=== PATIENT | male | born 1945 | race Caucasian/White ===

== ENCOUNTER → 2017-12-17 | Day surgery (SDC) | payer MEDICARE, OTHER, SELFPAY | END | disposition home or self-care (01) | PROVIDERS: PCP Internal Medicine; Visit Provider Surgery | DX: Z12.11 Encounter for screening for malignant neoplasm of colon (principal); K57.30 Diverticulosis of large intestine without perforation or abscess without bleeding; K64.0 First degree hemorrhoids; D12.0 Benign neoplasm of cecum; I48.91 Unspecified atrial fibrillation | CPT/HCPCS: 45380; 88305; 99152; 99153; J2250; J3010 ==

== ENCOUNTER → 2018-04-30 11:34 | Outpatient (CLI) | payer MEDICARE, OTHER, SELFPAY ==
[2018-04-30 12:34] LABS: Add Manual Diff / Slide Review NO; Basophils Percent Auto 0.9 % (0-2); Eosinophils Percent Auto 1.4 % (2-4); Hematocrit 36.2 % (41-53); Hemoglobin 12.2 g/dL (13.5-17.5); Lymphocytes Percent Auto 12.5 % (25-40); Mean Corpuscular HGB Conc 33.7 % (30-36); Mean Corpuscular Hemoglobin 32.6 PG (26-34); Mean Corpuscular Volume 96.6 fL (80-100); Monocytes Percent Auto 8.3 % (3-14); Neutrophils Absolute Auto 5400 /uL (3000-5900); Neutrophils Percent Auto 76.9 % (50-75); Platelet Count 293 X10^3/uL (150-400); Red Blood Cell Count 3.74 X10^6/uL (4.5-5.9); Red Cell Distribution Width 13.9 % (11.6-14.8); White Blood Cell Count 7.1 X10^3/uL (4.5-11.0)
[2018-04-30 13:02] LABS: Alanine Aminotransferase 95 IU/L (21-72); Albumin Globulin Ratio 1.3 (1.0-2.8); Alkaline Phosphatase 326 U/L (38-126); Aspartate Aminotransferase 88 IU/L (17-59); BUN Creatinine Ratio 18.9 (6-22); Bilirubin Total 0.7 mg/dL (0.2-1.3); Blood Urea Nitrogen 17 mg/dL (9-20); Calcium 9.6 mg/dL (8.4-10.2); Carbon Dioxide 26 mmol/L (22-32); Chloride 106 mmol/L (98-107); Cholesterol 211 mg/dL (140-199); Estimated Glomerular Filt Rate > 60.0 mL/min (>60); Globulin 3.2 g/dL (1.7-4.1); Glucose 90 mg/dL (80-110); HEMOLYSIS < 15 (0-50); Sodium 140 mmol/L (137-145); Total Protein 7.2 g/dL (6.3-8.2); Triglycerides 57 mg/dL (35-150)
[2018-04-30 13:11] LABS: HDL Cholesterol 143 mg/dL (40-60); LDL Cholesterol Calculated 57 mg/dL (<100)
[2018-04-30 13:31] LABS: Prostate Specific Antigen Scrn 3.01 ng/mL (0.1-4.0)
== END ==
PROVIDERS: PCP Internal Medicine; Visit Provider Internal Medicine
DX: C25.9 Malignant neoplasm of pancreas, unspecified (principal); E78.00 Pure hypercholesterolemia, unspecified; Z12.5 Encounter for screening for malignant neoplasm of prostate
CPT/HCPCS: 36415; 80053; 80061; 85025; G0103

== ENCOUNTER → 2018-05-13 13:15 | Outpatient (CLI) | payer MEDICARE, OTHER, SELFPAY ==
--- NOTE | 2018-05-13 | DI.RAD.S_ITS ---
This blank DEXA report has been sent in error by the PACS system. The correct and complete report will be forthcoming in 1-2 days. Thank you for your patience and understanding. Dictated by: Hilary Delcaruz MD, PhD on 05/13/2018 at 14:30 Approved by: Hilary Delacruz MD, PhD on 05/13/2018 at 14:30
== END ==
PROVIDERS: PCP Internal Medicine; Visit Provider Internal Medicine
DX: M85.851 Other specified disorders of bone density and structure, right thigh (principal); M06.9 Rheumatoid arthritis, unspecified; R29.890 Loss of height; K92.9 Disease of digestive system, unspecified
CPT/HCPCS: 77080

== ENCOUNTER 2018-12-09 07:41 | Emergency (ER) | payer MEDICARE, OTHER, SELFPAY ==
[2018-12-09] VITALS (15 sets, daily range): BP systolic 98–139; BP diastolic 74–84; PULSE 50–160; RESP 14–20; TEMP 36.4; O2SAT 98–100; BMI 20.2
--- NOTE | 2018-12-09 07:49 | DI.RAD.S_ITS ---
PROCEDURE: XR CHEST 1V INDICATIONS: afib TECHNIQUE: One view of the chest was acquired. COMPARISON: [facility], , CHEST 2 VIEW, 01/11/2012, 15:44. FINDINGS: Surgical changes and devices: None. Lungs and pleura: Lungs are clear. No pleural effusions or pneumothorax. Mediastinum: Mediastinal contours appear normal. Heart size is normal. Bones and chest wall: No suspicious bony lesions. Overlying soft tissues appear unremarkable. IMPRESSION: No acute cardiopulmonary disease process. Dictated by: Hilary Delacruz MD, PhD on 12/09/2018 at 8:22 Approved by: iHlary Delacruz MD, PhD on 12/09/2018 at 8:22
[2018-12-09] MEDS: SODIUM CHLORIDE 0.9% 1,000 ML 150 ML IV (08:01)
[2018-12-09 08:02] LABS: Add Manual Diff / Slide Review NO; Basophils Absolute Auto 100 /uL (0-100); Basophils Percent Auto 0.9 % (0-2); Eosinophils Absolute Auto 200 /uL (0-450); Eosinophils Percent Auto 2.4 % (2-4); Hematocrit 38.4 % (41-53); Hemoglobin 12.8 g/dL (13.5-17.5); Lymphocytes Absolute Auto 1000 /uL (1100-4500); Lymphocytes Percent Auto 12.2 % (25-40); Mean Corpuscular HGB Conc 33.3 % (30-36); Mean Corpuscular Hemoglobin 32.2 PG (26-34); Mean Corpuscular Volume 96.6 fL (80-100); Monocytes Absolute Auto 700 /uL (0-900); Monocytes Percent Auto 8.6 % (3-14); Neutrophils Absolute Auto 6500 /uL (1500-7000); Neutrophils Percent Auto 75.9 % (50-75); Platelet Count 296 X10^3/uL (150-400); Red Blood Cell Count 3.97 X10^6/uL (4.5-5.9); Red Cell Distribution Width 14.2 % (11.6-14.8); White Blood Cell Count 8.6 X10^3/uL (4.5-11.0)
--- NOTE | 2018-12-09 08:09 | ED.ARRPALP ---
HPI - Arrhythmia/Palpitations General Chief Complaint: Arrhythmia/Palpitations Stated Complaint: afib Time Seen by Provider: 12/09/18 07:54 Source: patient and family () Mode of arrival: ambulatory Limitations: no limitations History of Present Illness HPI narrative: 73-year-old male comes to the emergency department with complaint of irregular heartbeat/AFib. The patient states this morning about 5:00 a.m. he was up walking in the house when he felt a jolt and a retic heartbeat. He states he has had this episode 3 or 4 times the past over several years. Usually will last a couple hours maybe up to 5 and then resolved. Today he was feeling a little bit weak but able to ambulate without major issue. Mildly short of breath. Denies any chest pain or pressure, no nausea and/or vomiting. Has not had any recent upper respiratory infections, fevers. He states maybe when it 1st started he felt a little clammy but that is no longer present. He states that he has diarrhea chronically secondary to pancreatic cancer, Whipple procedure and Crohn's disease. He has not noticed any blood, he states sometimes his stool seemed a little dark but that is rarely. He denies any swelling in his lower extremities other than his left leg is always a little bit bigger than his right it has been this way for several years. He has noticed that he gets a little bit more fatigued when he goes out for a walk over the last 6 months. But states that he can hop on a bike and right 20 miles without any major issue. Does remember if he has ever had a stress test or cardiac catheterization. He has mention these episodes to his physician but never been worked up. Patient states he has known pancreatic cancer, Crohn's disease, he has had E coli infections related to biopsy found on his prostate. He takes medication for osteoporosis, Creon as well as finasteride. He does not take any thinners or aspirin. He has had a Whipple procedure, colon resection after large polyp was found on colonoscopy that was unable to be removed, bilateral knee surgery, hernia repair, appendectomy. Patient denies any allergies. Related Data Home Medications Medication Instructions Recorded Confirmed FOLIC ACID/VIT A/VIT B1/VIT 1 tab PO BID #0 06/04/12 (#MULTIVITAMIN) [ibuprofen ] 100 mg PO #0 06/04/12 alendronate [Fosamax] 70 mg PO QWEEK #0 03/06/17 12/09/18 calcium citrate 600 BID #0 03/06/17 loperamide [Imodium A-D] mg PO PRN PRN #0 03/26/17 ciprofloxacin HCl [Cipro] 500 mg PO BID #0 12/17/17 sildenafil [Viagra] 50 mg PO PRN PRN #0 12/17/17 finasteride 5 mg PO DAILY 12/09/18 12/09/18 [id number] [Creon] 12/09/18 pantoprazole 40 mg PO DAILY 12/09/18 12/09/18 Previous Rx's Medication Instructions Recorded hydrocodone-acetaminophen [[place]] 1 - 2 tab PO Q6HP PRN #10 tab 03/06/17 tamsulosin [Flomax] 0.4 mg PO QDAY 7 Days #0 cap 03/06/17 apixaban [Eliquis] 5 mg PO BID 30 Days #60 tab 12/09/18 metoprolol tartrate 12.5 mg PO BID #30 tab 12/09/18 Allergies Allergy/AdvReac Type Severity Reaction Status Date / Time No Known Drug Allergies Allergy Verified 12/09/18 07:47 Review of Systems Review of Systems ROS Unobtainable: All systems reviewed & are unremarkable except as noted in HPI and below Constitutional Denies body ache(s), Denies chills, Denies fever(s), Denies lethargy and Reports weakness ENT Ears, Nose, Mouth, and Throat: Denies nasal congestion Cardiovascular Denies chest pain, Denies chest pain at rest, Denies chest pain with activity, Denies syncope, Reports rapid heart rate, Denies edema, Reports irregular heart rhythm, Denies leg edema, Denies lightheadedness, Denies radiating jaw, neck or arm pain, Denies palpitations, Reports dyspnea (Mild per patient), Denies dyspnea on exertion and Denies orthopnea Respiratory Denies change in phlegm color, Denies chest congestion, Denies cough, Denies excessive phlegm production, Denies pain on inspiration, Reports dyspnea (Mild per patient), Denies dyspnea on exertion and Denies wheezing Gastrointestinal Gastrointestinal: Denies abdominal pain, Denies melena, Denies hematochezia, Denies change in bowel habits, Reports diarrhea (Chronically), Denies nausea and Denies vomiting Integumentary/Breasts Denies rash Neurologic Denies syncope and Reports weakness Endocrine Denies palpitations Allergic/Immunologic Denies wheezing [facility] Medical History (Updated 12/09/18 @ 08:16 by Shannon Swenson DO) BPH (benign prostatic hyperplasia) (Chronic) Crohn's disease (Chronic) Pancreatic cancer (Chronic) Exam Narrative Exam Narrative: GENERAL: Alert and oriented x three, thin, well-appearing male in no acute distress. HEENT: Head normocephalic, atraumatic, EOMI, pupils reactive, face symmetric, moist mucous membranes NECK: Supple, full range of motion CARDIOVASCULAR: Tachycardic and irregularly irregular, without murmurs, rubs or gallops. No JVD. No edema bilateral lower extremities. RESPIRATORY: Breath sounds equal bilaterally, no wheezes rales or rhonchi. No tachypnea, no accessory muscle use. ABDOMEN: Soft, nontender. Normoactive bowel sounds all 4 quadrants. No guarding or rebound, rigidity, no mass : No CVA tenderness EXTREMITIES: Normal range of motion, no clubbing or edema. 2+ pulses bilateral lower extremities. Neurovascularly intact NEUROLOGICAL: Cranial nerves II through XII grossly intact. Moving all extremities SKIN: Warm, dry, no petechiae, no rashes or lesions. Initial Vital Signs Initial Vital Signs: Vital Signs Temperature 97.6 F 12/09/18 07:45 Pulse Rate 159 H 12/09/18 07:45 Respiratory Rate 20 12/09/18 07:45 Blood Pressure 132/74 12/09/18 07:45 Pulse Oximetry 98 12/09/18 07:45 Procedures Cardioversion Consent Signed: Yes Indication: AFib with rapid ventricular response, hypotension. Cardiac rhythm prior to cardioversion: Atrial fibrillation with rapid ventricular response Number of attempts (shocks): 1 Joules used: 150 Cardiac rhythm post-cardioversion: Sinus rhythm, bradycardic Procedural Sedation Patient Age: Patient is 5yrs or older Consent signed: Yes Time out performed: Yes Indication: cardioversion Presedation Evaluation: See chart ASA Class: II Time of Last PO Intake: 06:00 Preparation: instructional technologist applied, pulse oximeter, capnometry used, supplemental O2 applied, suction/airway equipment at bedside and IV secured IV Etomidate dose (mg): 8 Intraservice time/total sedation time (min): 10 ED Sedation Level: Moderate (Concious) Patient Tolerated Procedure: Well Complications: none Interventions: Airway repositioned Course Orders Ordered: Discontinued Medications Apixaban (Eliquis) 5 mg PO NOW ONE Stop: 12/09/18 10:53 Last Admin: 12/09/18 11:11 Dose: 5 mg Aspirin (Aspirin Chew) 324 mg PO NOW ONE Stop: 12/09/18 08:08 Last Admin: 12/09/18 08:23 Dose: 324 mg Diltiazem HCl (Cardizem) 20 mg IV NOW ONE Stop: 12/09/18 08:08 Last Admin: 12/09/18 08:18 Dose: 20 mg Etomidate (Amidate) 8 mg IV NOW ONE Stop: 12/09/18 11:04 Last Admin: 12/09/18 11:05 Dose: 8 mg Sodium Chloride (Normal Saline 0.9%) 1,000 mls @ 150 mls/hr IV CONT BRANDAN Last Infusion: 12/09/18 11:06 Dose: 0 mls/hr Infusion: 12/09/18 09:08 Dose: 150 mls/hr Infusion: 12/09/18 08:23 Dose: 0 mls/hr Admin: 12/09/18 08:01 Dose: 150 mls/hr Sodium Chloride (Normal Saline 0.9%) 1,000 mls @ 1,000 mls/hr IV BOLUS ONE Stop: 12/09/18 09:06 Last Infusion: 12/09/18 09:08 Dose: 0 mls/hr Admin: 12/09/18 08:23 Dose: 1,000 mls/hr Vital Signs - 8 hr 12/09/18 07:45 12/09/18 09:10 12/09/18 09:25 Temperature 97.6 F Pulse Rate 159 H 160 H 143 H Respiratory Rate 20 14 19 Blood Pressure 132/74 Blood Pressure [Left Arm] 98/80 Pulse Oximetry 98 100 12/09/18 09:30 12/09/18 09:35 12/09/18 09:40 Temperature Pulse Rate 54 L 58 L 51 L Respiratory Rate 16 20 17 Blood Pressure Blood Pressure [Left Arm] 105/75 125/84 118/80 Pulse Oximetry 98 100 100 12/09/18 09:45 12/09/18 09:50 12/09/18 09:55 Temperature Pulse Rate 52 L 55 L 53 L Respiratory Rate 15 16 15 Blood Pressure Blood Pressure [Left Arm] 120/76 124/76 125/81 Pulse Oximetry 99 100 100 12/09/18 10:00 Temperature Pulse Rate 52 L Respiratory Rate 15 Blood Pressure Blood Pressure [Left Arm] 125/82 Pulse Oximetry 100 MDM - Arrhythmia/Palpitations Lab Data Attestation: I reviewed the patient's lab results. Result diagrams: 12/09/18 07:55 12/09/18 07:55 Lab Results 12/09/18 12/09/18 12/09/18 Range/Units 07:53 07:55 07:55 WBC 8.6 (4.5-11.0) X10^3/uL RBC 3.97 L (4.5-5.9) X10^6/uL Hgb 12.8 L (13.5-17.5) g/dL Hct 38.4 L (41-53) % MCV 96.6 (80-100) fL MCH 32.2 (26-34) PG MCHC 33.3 (30-36) % RDW 14.2 (11.6-14.8) % Plt Count 296 (150-400) X10^3/uL Neut % (Auto) 75.9 H (50-75) % Lymph % (Auto) 12.2 L (25-40) % [place] % (Auto) 8.6 (3-14) % Eos % (Auto) 2.4 (2-4) % Baso % (Auto) 0.9 (0-2) % Neut # (Auto) 6500 (4820-7329) /uL Lymph # (Auto) 1000 L (3357-9405) /uL [place] # (Auto) 700 (0-900) /uL Eos # (Auto) 200 (0-450) /uL Baso # (Auto) 100 (0-100) /uL PT 9.7 L (10.1-12.7) SECONDS INR 0.8 L (0.9-1.3) APTT 28 (26.4-36.2) SECONDS Sodium Cancelled Potassium Cancelled Chloride Cancelled Carbon Dioxide Cancelled BUN Cancelled Creatinine Cancelled Estimated GFR Cancelled BUN/Creatinine Ratio Cancelled Glucose Cancelled Calcium Cancelled Magnesium 1.9 (1.6-2.3) mg/dL Total Bilirubin (0.2-1.3) mg/dL AST (17-59) IU/L ALT (21-72) IU/L Alkaline Phosphatase (38-126) U/L Total Creatine Kinase Cancelled CK-MB (CK-2) Cancelled CK-MB (CK-2) Rel Index Cancelled Troponin I Cancelled Total Protein (6.3-8.2) g/dL Albumin (3.5-5.0) g/dL Globulin (1.7-4.1) g/dL Albumin/Globulin Ratio (1.0-2.8) TSH (0.47-4.68) uIU/mL Specimen Hemolysis Cancelled 12/09/18 12/09/18 Range/Units 07:55 07:55 WBC (4.5-11.0) X10^3/uL RBC (4.5-5.9) X10^6/uL Hgb (13.5-17.5) g/dL Hct (41-53) % MCV (80-100) fL MCH (26-34) PG MCHC (30-36) % RDW (11.6-14.8) % Plt Count (150-400) X10^3/uL Neut % (Auto) (50-75) % Lymph % (Auto) (25-40) % [place] % (Auto) (3-14) % Eos % (Auto) (2-4) % Baso % (Auto) (0-2) % Neut # (Auto) (1262-1471) /uL Lymph # (Auto) (8091-6079) /uL [place] # (Auto) (0-900) /uL Eos # (Auto) (0-450) /uL Baso # (Auto) (0-100) /uL PT (10.1-12.7) SECONDS INR (0.9-1.3) APTT (26.4-36.2) SECONDS Sodium 138 Potassium 4.6 Chloride 109 H Carbon Dioxide 23 BUN 19 Creatinine 1.10 Estimated GFR > 60.0 BUN/Creatinine Ratio 17.3 Glucose 106 Calcium 9.7 Magnesium (1.6-2.3) mg/dL Total Bilirubin 0.7 (0.2-1.3) mg/dL AST 149 H (17-59) IU/L ALT 124 H (21-72) IU/L Alkaline Phosphatase 322 H (38-126) U/L Total Creatine Kinase 89 CK-MB (CK-2) TNP CK-MB (CK-2) Rel Index TNP Troponin I 0.016 Total Protein 7.4 (6.3-8.2) g/dL Albumin 4.0 (3.5-5.0) g/dL Globulin 3.4 (1.7-4.1) g/dL Albumin/Globulin Ratio 1.2 (1.0-2.8) TSH 2.79 (0.47-4.68) uIU/mL Specimen Hemolysis Imaging Data Chest x-ray: Radiologist's impression: Chart Viewer Diagnostics DATE TYPE STATUS AUTHOR Hx 12/09/18 07:49 Hilary Delacruz 05/13/18 00:00 Hilary Delacruz Fermín Youngerall Maren 73, M0 1945 PRE ER, ED.LOC - Main ED: R10 180.34cm 65.771kg BMI: 20.2kg/m? Arrhythmia/Palpitations Search Chart NF - Not included in interaction checking ONSET Today 07:45 CarisaArik Maren 73 M 1945 [place] [address] XRay Report Signed Patient: Arik Younger EMR#: [id number] : 1945cct:[id number] Age/Sex: 73 / MDate of Service: 12/09/18 Loc: ED Accession Number: [id number] Procedure: XR chest 1V Ordering Provider: Shannon Swenson D.O. PROCEDURE: XR CHEST 1V INDICATIONS: afib TECHNIQUE: One view of the chest was acquired. COMPARISON: [facility], , CHEST 2 VIEW, 01/11/2012, 15:44. FINDINGS: Surgical changes and devices: None. Lungs and pleura: Lungs are clear. No pleural effusions or pneumothorax. Mediastinum: Mediastinal contours appear normal. Heart size is normal. Bones and chest wall: No suspicious bony lesions. Overlying soft tissues appear unremarkable. IMPRESSION: No acute cardiopulmonary disease process. Dictated by: Hilary Delacruz MD, PhD on 12/09/2018 at 8:22 Approved by: Hilary Delacruz MD, PhD on 12/09/2018 at 8:22 ECG Data Attestation: I personally reviewed and interpreted this ECG as follows: Prior ECG tracings: not available for review Interpretation: AFib with rapid ventricular response with a rate of 143, QRS of 114 and QTC of 380. Q-wave in [address] elevation appreciated. EKG 2. Shows sinus bradycardia with first-degree AV block with a rate of 52 P are 241 [place] 106 and QTC of 414. Patient has Q-waves in 2 and aVL, as well as a Q-wave in V1 V2. Patient does not have any ST elevation. MDM Narrative Medical decision making narrative: Patient tolerated procedure well and is asymptomatic afterwards. Discussed with Cardiology plan to start patient on Eliquis for at least 1 month if he is asymptomatic without any further episodes there could be a discussion about stopping his Eliquis. He also recommended a metoprolol low dose twice daily. Follow up with echo and follow up with ultrasound. Discussed with patient and family they are comfortable with this plan. Patient's heart rate continued to be a little bit slow so discussed that he should not start if it continues to be slow or if he does take it if it makes him lightheaded. He was given the 1st dose of Eliquis here. Continue his other home medications as prescribed. Patient's lab work shows mild anemia which is stable, coags were normal with elevated LFTs. Patient states this is normal and has been his baseline since his Whipple procedure. troponin today was negative. Chest x-ray showed no acute change. All questions answered entirety. Discharge Plan Departure Patient Disposition: Home Clinical Impression: Atrial fibrillation with RVR Discharge Date/Time: 12/09/18 11:17 Interventions: ED Discharge Assessment Last Done: 12/09/18 11:14 Instructions: DI for Atrial Fibrillation Activity Restrictions/Additional Instructions: Follow-up with your primary care and/or Cardiology in next week for follow-up. Included is referral for Cardiology. It is recommended that you start blood thinner Eliquis 5 mg twice daily for at least 30 days. If you do not have any further episodes of atrial fibrillation you may be able to stop this but talk with her ict project manager or physician before stopping. Also recommended is metoprolol twice daily. Discussed with your physician about getting an echo in the next week. They can order this as an outpatient. Return to the emergency department for recurrent symptoms, new lightheadedness, passing out, chest pain or pressure, shortness of breath, new weakness, numbness, persistent vomiting or other new or concerning symptoms. Prescriptions: New metoprolol tartrate 25 mg tablet 12.5 mg PO BID Qty: 30 RF: 0 Eliquis 5 mg tablet 5 mg PO BID 30 Days Qty: 60 RF: 0 No Action [ibuprofen ] 100 mg PO Qty: 0 RF: 0 FOLIC ACID/VIT A/VIT B1/VIT (#MULTIVITAMIN) 1 tab PO BID Qty: 0 RF: 0 alendronate [Fosamax] 70 MG tablet 70 mg PO QWEEK Qty: 0 RF: 0 calcium citrate 250 MG tablet 600 BID Qty: 0 RF: 0 hydrocodone-acetaminophen [[place]] 5 MG/325 MG tablet 1 - 2 tab PO Q6HP PRNQty: 10 RF: 0 tamsulosin [Flomax] 0.4 MG capsule,extended release 24hr 0.4 mg PO QDAY 7 Days Qty: 0 RF: 0 loperamide [Imodium A-D] 1 MG/7.5 ML liquid PO PRN PRNQty: 0 RF: 0 ciprofloxacin HCl [Cipro] 500 MG tablet 500 mg PO BID Qty: 0 RF: 0 sildenafil [Viagra] 50 MG tablet 50 mg PO PRN PRNQty: 0 RF: 0 pantoprazole 40 mg tablet,delayed release (DR/EC) 40 mg PO DAILY RF: 0 finasteride 5 mg tablet 5 mg PO DAILY RF: 0 Creon 24,000-76,000 -120,000 unit capsule,delayed release(DR/EC) RF: 0 Referrals: Jamin Pizarro MD [Primary Care Provider] - Ulisses Henderson MD [Physician] -
--- NOTE | 2018-12-09 08:16 | ED_ITS ---
HPI - Arrhythmia/Palpitations General Chief Complaint: Arrhythmia/Palpitations Stated Complaint: afib Time Seen by Provider: 12/09/18 07:54 Source: patient and family () Mode of arrival: ambulatory Limitations: no limitations History of Present Illness HPI narrative: 73-year-old male comes to the emergency department with complaint of irregular heartbeat/AFib. The patient states this morning about 5:00 a.m. he was up walking in the house when he felt a jolt and a retic heartbeat. He states he has had this episode 3 or 4 times the past over several years. Usually will last a couple hours maybe up to 5 and then resolved. Today he was feeling a little bit weak but able to ambulate without major issue. Mildly short of breath. Denies any chest pain or pressure, no nausea and/or vomiting. Has not had any recent upper respiratory infections, fevers. He states maybe when it 1st started he felt a little clammy but that is no longer present. He states that he has diarrhea chronically secondary to pancreatic cancer, Whipple procedure and Crohn's disease. He has not noticed any blood, he states juvenal etimes his stool seemed a little dark but that is rarely. He denies any swelling in his lower extremities other than his left leg is always a little bit bigger than his right it has been this way for several years. He has noticed that he gets a little bit more fatigued when he goes out for a walk over the last 6 months. But states that he can hop on a bike and right 20 miles without any major issue. Does remember if he has ever had a stress test or cardiac catheterization. He has mention these episodes to his physician but never been worked up. Patient states he has known pancreatic cancer, Crohn's disease, he has had E coli infections related to biopsy found on his prostate. He takes medication for osteoporosis, Creon as well as finasteride. He does not take any thinners or aspirin. He has had a Whipple procedure, colon resection after large polyp was found on colonoscopy that was unable to be removed, bilateral knee surgery, hernia repair, appendectomy. Patient denies any allergies. Related Data Home Medications Medication Instructions Recorded Confirmed FOLIC ACID/VIT A/VIT B1/VIT 1 tab PO BID #0 06/04/12 (#MULTIVITAMIN) [ibuprofen ] 100 mg PO #0 10/09/12 alendronate [Fosamax] 70 mg PO QWEEK #0 03/06/17 12/09/18 calcium citrate 600 BID #0 03/06/17 loperamide [Imodium A-D] mg PO PRN PRN #0 03/26/17 ciprofloxacin HCl [Cipro] 500 mg PO BID #0 12/17/17 sildenafil [Viagra] 50 mg PO PRN PRN #0 12/17/17 finasteride 5 mg PO DAILY 12/09/18 12/09/18 [id number] [Creon] 12/09/18 pantoprazole 40 mg PO DAILY 12/09/18 12/09/18 Previous Rx's Medication Instructions Recorded hydrocodone-acetaminophen [Mobile] 1 - 2 tab PO Q6HP PRN #10 tab 03/06/17 tamsulosin [Flomax] 0.4 mg PO QDAY 7 Days #0 cap 03/06/17 apixaban [Eliquis] 5 mg PO BID 30 Days #60 tab 12/09/18 metoprolol tartrate 12.5 mg PO BID #30 tab 12/09/18 Allergies Allergy/AdvReac Type Severity Reaction Status Date / Time No Known Drug Allergies Allergy Verified 12/09/18 07:47 Review of Systems Review of Systems ROS Unobtainable: All systems reviewed & are unremarkable except as noted in HPI and below Constitutional Denies body ache(s), Denies chills, Denies fever(s), Denies lethargy and Reports weakness ENT Ears, Nose, Mouth, and Throat: Denies nasal congestion Cardiovascular Denies chest pain, Denies chest pain at rest, Denies chest pain with activity, Denies syncope, Reports rapid heart rate, Denies edema, Reports irregular heart rhythm, Denies leg edema, Denies lightheadedness, Denies radiating jaw, neck or arm pain, Denies palpitations, Reports dyspnea (Mild per patient), Denies dyspnea on exertion and Denies orthopnea Respiratory Denies change in phlegm color, Denies chest congestion, Denies cough, Denies excessive phlegm production, Denies pain on inspiration, Reports dyspnea (Mild per patient), Denies dyspnea on exertion and Denies wheezing Gastrointestinal Gastrointestinal: Denies abdominal pain, Denies melena, Denies hematochezia, Denies change in bowel habits, Reports diarrhea (Chronically), Denies nausea and Denies vomiting Integumentary/Breasts Denies rash Neurologic Denies syncope and Reports weakness Endocrine Denies palpitations Allergic/Immunologic Denies wheezing [facility] Medical History (Updated 12/09/18 @ 08:16 by Shannon Swenson DO) BPH (benign prostatic hyperplasia) (Chronic) Crohn's disease (Chronic) Pancreatic cancer (Chronic) Exam Narrative Exam Narrative: GENERAL: Alert and oriented x three, thin, well-appearing male in no acute distress. HEENT: Head normocephalic, atraumatic, EOMI, pupils reactive, face symmetric, moist mucous membranes NECK: Supple, full range of motion CARDIOVASCULAR: Tachycardic and irregularly irregular, without murmurs, rubs or gallops. No JVD. No edema bilateral lower extremities. RESPIRATORY: Breath sounds equal bilaterally, no wheezes rales or rhonchi. No tachypnea, no accessory muscle use. ABDOMEN: Soft, nontender. Normoactive bowel sounds all 4 quadrants. No guardi ng or rebound, rigidity, no mass : No CVA tenderness EXTREMITIES: Normal range of motion, no clubbing or edema. 2+ pulses bilateral lower extremities. Neurovascularly intact NEUROLOGICAL: Cranial nerves II through XII grossly intact. Moving all extremities SKIN: Warm, dry, no petechiae, no rashes or lesions. Initial Vital Signs Initial Vital Signs: Vital Signs Temperature 97.6 F 12/09/18 07:45 Pulse Rate 159 H 12/09/18 07:45 Respiratory Rate 20 12/09/18 07:45 Blood Pressure 132/74 12/09/18 07:45 Pulse Oximetry 98 12/09/18 07:45 Procedures Cardioversion Consent Signed: Yes Indication: AFib with rapid ventricular response, hypotension. Cardiac rhythm prior to cardioversion: Atrial fibrillation with rapid ventric ular response Number of attempts (shocks): 1 Joules used: 150 Cardiac rhythm post-cardioversion: Sinus rhythm, bradycardic Procedural Sedation Patient Age: Patient is 5yrs or older Consent signed: Yes Time out performed: Yes Indication: cardioversion Presedation Evaluation: See chart ASA Class: II Time of Last PO Intake: 06:00 Preparation: power electronics engineer applied, pulse oximeter, capnometry used, supplemental O2 applied, suction/airway equipment at bedside and IV secured IV Etomidate dose (mg): 8 Intraservice time/total sedation time (min): 10 ED Sedation Level: Moderate (Concious) Patient Tolerated Procedure: Well Complications: none Interventions: Airway repositioned Course Orders Ordered: Discontinued Medications Apixaban (Eliquis) 5 mg PO NOW ONE Stop: 12/09/18 10:53 Last Admin: 12/09/18 11:11 Dose: 5 mg Aspirin (Aspirin Chew) 324 mg PO NOW ONE Stop: 12/09/18 08:08 Last Admin: 12/09/18 08:23 Dose: 324 mg Diltiazem HCl (Cardizem) 20 mg IV NOW ONE Stop: 12/09/18 08:08 Last Admin: 12/09/18 08:18 Dose: 20 mg Etomidate (Amidate) 8 mg IV NOW ONE Stop: 12/09/18 11:04 Last Admin: 12/09/18 11:05 Dose: 8 mg Sodium Chloride (Normal Saline 0.9%) 1,000 mls @ 150 mls/hr IV CONT BRANDAN Last Infusion: 12/09/18 11:06 Dose: 0 mls/hr Infusion: 12/09/18 09:08 Dose: 150 mls/hr Infusion: 12/09/18 08:23 Dose: 0 mls/hr Admin: 12/09/18 08:01 Dose: 150 mls/hr Sodium Chloride (Normal Saline 0.9%) 1,000 mls @ 1,000 mls/hr IV BOLUS ONE Stop: 12/09/18 09:06 Last Infusion: 12/09/18 09:08 Dose: 0 mls/hr Admin: 12/09/18 08:23 Dose: 1,000 mls/hr Vital Signs - 8 hr 12/09/18 07:45 12/09/18 09:10 12/09/18 09:25 Temperature 97.6 F Pulse Rate 159 H 160 H 143 H Respiratory Rate 20 14 19 Blood Pressure 132/74 Blood Pressure [Left Arm] 98/80 Pulse Oximetry 98 100 12/09/18 09:30 12/09/18 09:35 12/09/18 09:40 Temperature Pulse Rate 54 L 58 L 51 L Respiratory Rate 16 20 17 Blood Pressure Blood Pressure [Left Arm] 105/75 125/84 118/80 Pulse Oximetry 98 100 100 12/09/18 09:45 12/09/18 09:50 12/09/18 09:55 Temperature Pulse Rate 52 L 55 L 53 L Respiratory Rate 15 16 15 Blood Pressure Blood Pressure [Left Arm] 120/76 124/76 125/81 Pulse Oximetry 99 100 100 12/09/18 10:00 Temperature Pulse Rate 52 L Respiratory Rate 15 Blood Pressure Blood Pressure [Left Arm] 125/82 Pulse Oximetry 100 MDM - Arrhythmia/Palpitations Lab Data Attestation: I reviewed the patient's lab results. Result diagrams: 12/09/18 07:55 12/09/18 07:55 Lab Results 12/09/18 12/09/18 12/09/18 Range/Units 07:53 07:55 07:55 WBC 8.6 (4.5-11.0) X10^3/uL RBC 3.97 L (4.5-5.9) X10^6/uL Hgb 12.8 L (13.5-17.5) g/dL Hct 38.4 L (41-53) % MCV 96.6 (80-100) fL MCH 32.2 (26-34) PG MCHC 33.3 (30-36) % RDW 14.2 (11.6-14.8) % Plt Count 296 (150-400) X10^3/uL Neut % (Auto) 75.9 H (50-75) % Lymph % (Auto) 12.2 L (25-40) % [place] % (Auto) 8.6 (3-14) % Eos % (Auto) 2.4 (2-4) % Baso % (Auto) 0.9 (0-2) % Neut # (Auto) 6500 (0658-2148) /uL Lymph # (Auto) 1000 L (7926-4888) /uL [place] # (Auto) 700 (0-900) /uL Eos # (Auto) 200 (0-450) /uL Baso # (Auto) 100 (0-100) /uL PT 9.7 L (10.1-12.7) SECONDS INR 0.8 L (0.9-1.3) APTT 28 (26.4-36.2) SECONDS Sodium Cancelled Potassium Cancelled Chloride Cancelled Carbon Dioxide Cancelled BUN Cancelled Creatinine Cancelled Estimated GFR Cancelled BUN/Creatinine Ratio Cancelled Glucose Cancelled Calcium Cancelled Magnesium 1.9 (1.6-2.3) mg/dL Total Bilirubin (0.2-1.3) mg/dL AST (17-59) IU/L ALT (21-72) IU/L Alkaline Phosphatase (38-126) U/L Total Creatine Kinase Cancelled CK-MB (CK-2) Cancelled CK-MB (CK-2) Rel Index Cancelled Troponin I Cancelled Total Protein (6.3-8.2) g/dL Albumin (3.5-5.0) g/dL Globulin (1.7-4.1) g/dL Albumin/Globulin Ratio (1.0-2.8) TSH (0.47-4.68) uIU/mL Specimen Hemolysis Cancelled 12/09/18 12/09/18 Range/Units 07:55 07:55 WBC (4.5-11.0) X10^3/uL RBC (4.5-5.9) X10^6/uL Hgb (13.5-17.5) g/dL Hct (41-53) % MCV (80-100) fL MCH (26-34) PG MCHC (30-36) % RDW (11.6-14.8) % Plt Count (150-400) X10^3/uL Neut % (Auto) (50-75) % Lymph % (Auto) (25-40) % [place] % (Auto) (3-14) % Eos % (Auto) (2-4) % Baso % (Auto) (0-2) % Neut # (Auto) (3419-5703) /uL Lymph # (Auto) (7739-0629) /uL [place] # (Auto) (0-900) /uL Eos # (Auto) (0-450) /uL Baso # (Auto) (0-100) /uL PT (10.1-12.7) SECONDS INR (0.9-1.3) APTT (26.4-36.2) SECONDS Sodium 138 Potassium 4.6 Chloride 109 H Carbon Dioxide 23 BUN 19 Creatinine 1.10 Estimated GFR > 60.0 BUN/Creatinine Ratio 17.3 Glucose 106 Calcium 9.7 Magnesium (1.6-2.3) mg/dL Total Bilirubin 0.7 (0.2-1.3) mg/dL AST 149 H (17-59) IU/L ALT 124 H (21-72) IU/L Alkaline Phosphatase 322 H (38-126) U/L Total Creatine Kinase 89 CK-MB (CK-2) TNP CK-MB (CK-2) Rel Index TNP Troponin I 0.016 Total Protein 7.4 (6.3-8.2) g/dL Albumin 4.0 (3.5-5.0) g/dL Globulin 3.4 (1.7-4.1) g/dL Albumin/Globulin Ratio 1.2 (1.0-2.8) TSH 2.79 (0.47-4.68) uIU/mL Specimen Hemolysis Imaging Data Chest x-ray: Radiologist's impression: Chart Viewer Diagnostics DATE TYPE STATUS AUTHOR Hx 12/09/18 07:49 Hilary Delacruz 05/13/18 00:00 Hilary Delacruz Arik Younger 73, M0 1945 PRE ER, ED.LOC - Main ED: R10 180.34cm 65.771kg BMI: 20.2kg/m? Arrhythmia/Palpitations Search Chart NF - Not included in interaction checking ONSET Today 07:45 Arik Younger 73 [place] 1945 [place] [address] XRay Report Signed Patient: Arik Younger EMR#: [id number] : 1945cct:[id number] Age/Sex: 73 / MDate of Service: 12/09/18 Loc: ED Accession Number: [id number] Procedure: XR chest 1V Ordering Provider: Shannon Swenson D.O. PROCEDURE: XR CHEST 1V INDICATIONS: afib TECHNIQUE: One view of the chest was acquired. COMPARISON: [facility], , CHEST 2 VIEW, 01/11/2012, 15:44. FINDINGS: Surgical changes and devices: None. Lungs and pleura: Lungs are clear. No pleural effusions or pneumothorax. Mediastinum: Mediastinal contours appear normal. Heart size is normal. Bones and chest wall: No suspicious bony lesions. Overlying soft tissues appear unremarkable. IMPRESSION: No acute cardiopulmonary disease process. Dictated by: Hilary Delacruz MD, PhD on 12/09/2018 at 8:22 Approved by: Hilary Delacruz MD, PhD on 12/09/2018 at 8:22 ECG Data Attestation: I personally reviewed and interpreted this ECG as follows: Prior ECG tracings: not available for review Interpretation: AFib with rapid ventricular response with a rate of 143, QRS of 114 and QTC of 380. Q-wave in [address] elevation appreciated. EKG 2. Shows sinus bradycardia with first-degree AV block with a rate of 52 P are 241 [place] 106 and QTC of 414. Patient has Q-waves in 2 and aVL, as well as a Q-wave in V1 V2. Patient does not have any ST elevation. MDM Narrative Medical decision making narrative: Patient tolerated procedure well and is asymptomatic afterwards. Discussed with Cardiology plan to start patient on Eliquis for at least 1 month if he is asymptomatic without any further episodes there could be a discussion about stopping his Eliquis. He also recommended a metoprolol low dose twice daily. Follow up with echo and follow up with ultrasound. Discussed with patient and family they are comfortable with this plan. Patient's heart rate continued to be a little bit slow so discussed that he should not start if it continues to be slow or if he does take it if it makes him lightheaded. He was given the 1st dose of Eliquis here. Continue his other home medications as prescribed. Patient's lab work shows mild anemia which is stable, coags were normal with elevated LFTs. Patient states this is normal and has been his baseline since his Whipple procedure. troponin today was negative. Chest x-ray showed no acute change. All questions answered entirety. Discharge Plan Departure Patient Disposition: Home Clinical Impression: Atrial fibrillation with RVR Discharge Date/Time: 12/09/18 11:17 Interventions: ED Discharge Assessment Last Done: 12/09/18 11:14 Instructions: DI for Atrial Fibrillation Activity Restrictions/Additional Instructions: Follow-up with your primary care and/or Cardiology in next week for follow-up. Included is referral for Cardiology. It is recommended that you start blood thinner Eliquis 5 mg twice daily for at least 30 days. If you do not have any further episodes of atrial fibrillation you may be able to stop this but talk with her jigmaker or physician before stopping. Also recommended is metoprolol twice daily. Discussed with your physician about getting an echo in the next week. They can order this as an outpatient. Return to the emergency department for recurrent symptoms, new lightheadedness, passing out, chest pain or pressure, shortness of breath, new weakness, numbness, persistent vomiting or other new or concerning symptoms. Prescriptions: New metoprolol tartrate 25 mg tablet 12.5 mg PO BID Qty: 30 RF: 0 Eliquis 5 mg tablet 5 mg PO BID 30 Days Qty: 60 RF: 0 No Action [ibuprofen ] 100 mg PO Qty: 0 RF: 0 FOLIC ACID/VIT A/VIT B1/VIT (#MULTIVITAMIN) 1 tab PO BID Qty: 0 RF: 0 alendronate [Fosamax] 70 MG tablet 70 mg PO QWEEK Qty: 0 RF: 0 calcium citrate 250 MG tablet 600 BID Qty: 0 RF: 0 hydrocodone-acetaminophen [Mobile] 5 MG/325 MG tablet 1 - 2 tab PO Q6HP PRNQty: 10 RF: 0 tamsulosin [Flomax] 0.4 MG capsule,extended release 24hr 0.4 mg PO QDAY 7 Days Qty: 0 RF: 0 loperamide [Imodium A-D] 1 MG/7.5 ML liquid PO PRN PRNQty: 0 RF: 0 ciprofloxacin HCl [Cipro] 500 MG tablet 500 mg PO BID Qty: 0 RF: 0 sildenafil [Viagra] 50 MG tablet 50 mg PO PRN PRNQty: 0 RF: 0 pantoprazole 40 mg tablet,delayed release (DR/EC) 40 mg PO DAILY RF: 0 finasteride 5 mg tablet 5 mg PO DAILY RF: 0 Creon 24,000-76,000 -120,000 unit capsule,delayed release(DR/EC) RF: 0 Referrals: Jamin Pizarro MD [Primary Care Provider] - Ulisses Henderson MD [Physician] -
[2018-12-09] MEDS: dilTIAZem 5 MG/ML SDV 20 MG IV (08:18)
[2018-12-09] MEDS: SODIUM CHLORIDE 0.9% 1,000 ML 1000 ML IV (08:23)
[2018-12-09] MEDS: ASPIRIN 81 MG TAB 324 MG PO (08:23)
[2018-12-09 08:26] LABS: BUN Creatinine Ratio 17.3 (6-22); Blood Urea Nitrogen 19 mg/dL (9-20); Calcium 9.7 mg/dL (8.4-10.2); Carbon Dioxide 23 mmol/L (22-32); Chloride 109 mmol/L (98-107); Creatine Kinase 89 U/L (55-170); Estimated Glomerular Filt Rate > 60.0 mL/min (>60); Glucose 106 mg/dL (80-110); HEMOLYSIS < 15 (0-50); Potassium 4.6 mmol/L (3.4-5.1); Sodium 138 mmol/L (137-145)
[2018-12-09 08:34] LABS: Magnesium 1.9 mg/dL (1.6-2.3); Troponin I 0.016 ng/mL (0.01-0.034)
[2018-12-09 08:38] LABS: INR 0.8 (0.9-1.3); PTT Partial Thromboplastin Tim 28 SECONDS (26.4-36.2); Prothrombin Time 9.7 SECONDS (10.1-12.7)
[2018-12-09 08:46] LABS: Thyroid Stimulating Hormone 2.79 uIU/mL (0.47-4.68)
[2018-12-09 08:48] LABS: Alanine Aminotransferase 124 IU/L (21-72); Alkaline Phosphatase 322 U/L (38-126); Aspartate Aminotransferase 149 IU/L (17-59); Bilirubin Total 0.7 mg/dL (0.2-1.3); Total Protein 7.4 g/dL (6.3-8.2)
[2018-12-09 08:49] LABS: Albumin Globulin Ratio 1.2 (1.0-2.8); Globulin 3.4 g/dL (1.7-4.1)
[2018-12-09] MEDS: ETOMIDATE 2 MG/ML VIAL 8 MG IV (11:05)
[2018-12-09] MEDS: APIXABAN 5 MG TABLET PO (11:11)
== END 2018-12-09 11:17 | disposition home or self-care (01) ==
PROVIDERS: Emergency Provider Emergency Medicine; PCP Internal Medicine
DX: I48.91 Unspecified atrial fibrillation (principal); R53.83 Other fatigue; R19.7 Diarrhea, unspecified
CPT/HCPCS: 36591; 71045; 80053; 82550; 83735; 84443; 84484; 85025; 85610; 85730; 92960; 93005; 93010; 94770; 96361; 96374; 99152; 99285; 99291

== ENCOUNTER → 2018-12-16 06:45 | Outpatient (CLI) | payer MEDICARE, OTHER, SELFPAY ==
--- NOTE | 2018-12-16 | DI.ECHO.S_ITS ---
[facility]---------+ [facility] +---------+ : : [address] [place] : : : : [id number] : : : : Phone: [phone] Echocardiogram Report + + :Name: WOLF SANTOS Study Date: 12/16/2018 Height: 70 in : :[facility] Exam Location: [facility] Weight: 145 lb : : Gender: Male BSA: 1.8 m2 : :: 1945 Age: 73 yrs BP: 125/70 mmHg: :Reason For Study: Atrial fibrillation - paroxysmal : : Performed By: Aura Page : :Referring: MARIA DEL ROSARIO CARMONA L : + + Interpretation Summary 1) Normal left ventricular thickness and size with low normal systolic function (EF 50-55%). 2) Normal right ventricular size and function. 3) There is mild aortic stenosis (valve area 1.7cm2, mean gradient 7.9mmHg, severity ratio 0.37). 4) No prior Echo available for comparison. Procedure: A two-dimensional transthoracic echocardiogram with color flow and Doppler was performed. The study quality was technically adequate. There is no prior echocardiogram noted for this patient. The heart rate ranged between 54-60 bpm during the study. Left Ventricle: The left ventricle is normal in size. There is normal left ventricular wall thickness. Proximal septal thickening is noted. The ejection fraction is estimated to be 50-55%. Left ventricular systolic function is low normal. There are no focal wall motion abnormalities. Right Ventricle: The right ventricle is normal in size and function. Atria: The left atrium is severely dilated. The right atrium is mildly dilated. There is no Doppler evidence for an interatrial shunt. Mitral Valve: There is mild mitral annular calcification. There is borderline prolapse of the posterior leaflet. There is trace mitral regurgitation. Aortic Valve: The aortic valve is not well visualized , congenitally malformed cusp's can not be ruled out. There is mild aortic stenosis. There is trace aortic regurgitation. Tricuspid Valve: The tricuspid valve is normal in structure and function. There is trace tricuspid regurgitation. The right ventricular systolic pressure is estimated to be at least 22 mmHg based on an estimated right atrial pressure of 3 mm Hg. Pulmonic Valve: The pulmonic valve is not well seen, but is grossly normal. There is trace pulmonic regurgitation. Great Vessels: The aortic root is borderline dilated. The ascending aorta could not be visualized. The pulmonary artery is not well visualized, but is probably normal size. The IVC is of normal diameter and collapses greater than 50% with a sniff. This suggests a low right atrial pressure of 3 mm Hg. Pericardium/ Pleura There is no pericardial effusion. There is no pleural effusion. MMode/2D Measurements & Calculations LVIDd: 3.3 cm LVOT diam: 2.4 cm LVIDs: 2.0 cm Ao root diam: 4.0 cm FS: 40.2 % EPSS: 0.74 cm IVSd: 1.1 cm LVPWd: 0.86 cm LV fisher. diameter/BSA (cm/m^2): 1.8 LV sys. diameter/BSA (cm/m^2): 1.1 LA A2 area: 28.5 cm2 RA long axis: 5.2 cm LA A4 area: 18.9 cm2 RA area: 19.9 cm2 LA length (vol): 5.1 cm RA vol: 65.0 ml LA vol: 89.7 ml RA : 35.7 ml/m2 LA vol index: 49.2 ml/m2 IVC diam: 1.5 cm RVD1 (basal): 4.0 cm TAPSE: 2.4 cm Doppler Measurements & Calculations Ao V2 max: 188.0 cm/sec LVOT Max Juan: 72.3 cm/sec Ao V2 mean: 134.6 cm/sec LV V1 max P.1 mmHg Ao max P.1 mmHg LV V1 VTI: 15.0 cm Ao mean P.9 mmHg DENICE(I,D): 1.6 cm2 Ao V2 VTI: 41.0 cm DENICE(V,D): 1.7 cm2 sev ratio: 0.37 DENICE indexed to BSA (cm^2/m^2): 0.89 MV E max juan: 33.9 cm/sec TR max juan: 220.2 cm/sec MV A max juan: 64.0 cm/sec TR max P.4 mmHg MV E/A: 0.53 PA V2 max: 61.7 cm/sec Med Peak E' Juan: 3.2 cm/sec PA V2 mean: 42.8 cm/sec E/E' med: 10.7 PA mean P.81 mmHg Lat Peak E' Juan: 5.1 cm/sec PA Accel Time: 0.13 sec E/E' lat: 6.7 E/e' average: 8.7 MV dec time: 0.20 sec MV P1/2t: 59.6 msec MV P1/2t max juan: 34.2 cm/sec SV(LVOT): 66.5 ml MVA(P1/2t): 3.7 cm2 Reading Physician:12:36 PM
== END ==
PROVIDERS: PCP Internal Medicine; Visit Provider Internal Medicine
DX: I35.0 Nonrheumatic aortic (valve) stenosis (principal); I48.0 Paroxysmal atrial fibrillation
CPT/HCPCS: 93306

== ENCOUNTER → 2019-03-10 09:22 | Outpatient (CLI) | payer MEDICARE, OTHER, SELFPAY ==
--- NOTE | 2019-03-10 10:59 | PM.TREADMILL ---
Cardiac Stress Test Report Referral & Results Date Patient Seen: 03/10/19 Requesting provider: Ulisses Henderson Indication: Atrial fibrillation Rest ECG: Left anterior fascicular block and probable first-degree AV block Procedure Note: Today following both written and verbal informed consent the patient was exercised according to a standard Tobias protocol patient went for a total of 3 minutes 17 seconds achieving a maximum heart rate of 210 (this is approximately given a large degree of motion artifact was present while patient was moving) maximum systolic blood pressure of 157. This is approximately 4.6 METS. Exercise was terminated at this point because of patient was able to keep up with the treadmill. Patient was also given Cardiolite through a previously started Hep-Lock IV by the diagnostic imaging staff approximately 1 minute prior to the cessation of exercise. Note this test was performed patient off his metoprolol for 24+ hours. Patient had multiple episodes of SVT with a rate in the 170s there are persistent for several seconds at a time. As patient was slowing down after reaching maximum time on the treadmill he continued to have episodes although once he began to recover more completely this frequent SVT seem to disappear Patient also had occasional PVCs including ventricular couplets Patient's functional aerobic impairment rates about 40% of the sedentary scale No ST-T segment changes were identified Impression: No ECG evidence of ischemia Significant supraventricular dysrhythmias above including SVT but no atrial fibrillation identified Occasional PVCs Very limited exercise capacity as above Please see perfusion imaging report as well Please note: Actual ECG tracings can be found in the PACS system.
--- NOTE | 2019-03-11 21:15 | DI.NM.S_ITS ---
DATE OF SERVICE: 03/10/2019 PROCEDURE: Exercise perfusion study. INDICATIONS: Paroxysmal atrial fibrillation, hypertension, nonsustained ventricular tachycardia. RADIOPHARMACEUTICAL: 26.0 mCi technetium-99m Myoview IV was injected at stress and 24.9 mCi technetium-99m Myoview IV was injected at rest. CARDIAC STRESS: Patient underwent exercise perfusion study under the supervision of an attending staff. He walked on Tobias protocol for 3 minutes 17 seconds. Patient unable to continue on treadmill. Hence, it was discontinued. However, patient achieved 126% of target heart rate. There was normal blood pressure response. No significant symptoms reported as per the note. Baseline EKG revealed sinus rhythm with QS complexes in V1 to V2. Patient also had about 5 beats run of supraventricular tachycardia. During exercise, significant artifact seen. Patient has intermittent PACs, short run of SVT as well. No obvious atrial fibrillation seen. In recovery, patient has some PVCs and PACs without any ventricular tachycardia. RAW DATA: There is increased subdiaphragmatic activity. Hotspots seen near the apex and inferior border of the heart. GATED STUDY: Resting LV ejection fraction 61 and stress LV ejection fraction 64%. I don't see any obvious wall motion abnormalities. Resting end-diastolic volume is 183 mL suggestive of dilated left ventricle. No transient ischemic dilatation. TID ratio is 0.95, which is within normal limits. Lung/heart ratio is 0.19, which is within normal limits. MYOCARDIAL PERFUSION SCAN: Stress supine and resting supine images revealed moderate-sized [id number] decreased perfusion of inferior wall, inferior apex as well as inferoseptum which got significantly improved during prone images. Prone images remained to have mildly decreased perfusion of inferoapex. No obvious reversible ischemia. CONCLUSION: I will call this study likely a normal myocardial perfusion study with evidence of tissue attenuation artifact as stated above which got significantly improved during prone images. Patient also has some persistent tissue attenuation artifact reflected in the form of persistent mildly decreased perfusion of inferoapex. Hotspots seen near the inferior border and near the apex of the heart. However, patient has poor exercise tolerance. Functional aerobic impairment +40% on sedentary scale. Left ventricle is dilated; however, overall systolic function appears to be preserved. No transient ischemic dilatation. Baseline intermittent short burst of supraventricular tachycardia (SVT) seen. During exercise, Premature atrial contractions (PACs), premature ventricular contractions (PVCs) as well as short bursts of SVT seen. No sustained ventricular tachycardia or obvious atrial fibrillation seen. Clinical correlation is recommended. Arik Younger - AMOS/jennifer/ doc#: [id number]/job#: [id number] dd: 03/11/2019 17:01:00 dt: 03/11/2019 21:02:00 DICTATING MD/COPIES TO: Trisha Blas MD COPIES MNE: DAVID
== END ==
PROVIDERS: PCP Internal Medicine; Visit Provider Specialist
DX: I48.0 Paroxysmal atrial fibrillation (principal); I10 Essential (primary) hypertension; I47.2 Ventricular tachycardia; I47.1 Supraventricular tachycardia
CPT/HCPCS: 78452; 93016; 93017; 93018; A9502

== ENCOUNTER 2019-03-24 08:35 | Day surgery (SDC) | payer MEDICARE, OTHER, SELFPAY ==
[2019-03-24] VITALS (8 sets, daily range): BP systolic 86–138; BP diastolic 49–76; PULSE 53–60; RESP 11–16; TEMP 36.4–37.4; O2SAT 96–100; BMI 19.3
[2019-03-24] MEDS: SODIUM CHLORIDE 0.9% 1,000 ML 200 ML IV (09:20)
--- NOTE | 2019-03-24 09:49 | P.HP_ITS ---
History of Present Illness Date Patient Seen: 03/24/19 Time Patient Seen: 09:47 Chief complaint: [id number] Narrative: Pleasant 73yo M for one year colon screening follow up. History remarkable for stage III pancreatic cancer in 2008 for which he underwent a Whipple, chemo, and XRT. Also has a diagnosis of Crohn's disease. He had a low risk screening last year and a large TVA was found which was not endoscopically resectable. He was seen in and underwent a lap R hemicolectomy and has done well. He recovered well and has not had any abdominal or GI issues. He did have an episode of a fib with RVR and underwent cardioversion on 12/09/18. He is now on apaxiban and is seeing a tool filer hand. Yesterday a Holter monitor was placed with a plan for 2 weeks of recordings. Has seen cards and is on apaxiban ongoing as well as new Metoprolol. Understands increased bleeding risk. Patient History Medical History BPH (benign prostatic hyperplasia) (Chronic) Crohn's disease (Chronic) Pancreatic cancer (Chronic) Social History household members: spouse Family & Social History Social History: household members spouse Meds Home Medications Medication Instructions Recorded Confirmed Type FOLIC ACID/VIT A/VIT B1/VIT 1 tab PO BID #0 06/04/12 03/24/19 History (#MULTIVITAMIN) [ibuprofen ] 100 mg PO #0 06/04/12 01/30/19 History alendronate [Fosamax] 70 mg PO QWEEK #0 03/06/17 03/24/19 History calcium citrate 600 mg BID #0 03/06/17 03/24/19 History hydrocodone-acetaminophen [[place]] 1 - 2 tab PO Q6HP PRN #10 tab 03/06/17 03/24/19 Rx loperamide [Imodium A-D] 1 mg PO PRN PRN #0 03/26/17 03/24/19 History finasteride 5 mg PO DAILY 12/09/18 03/24/19 History metoprolol tartrate 12.5 mg PO BID #30 tab 12/09/18 03/24/19 Rx pantoprazole 40 mg PO DAILY 12/09/18 03/24/19 History apixaban [Eliquis] 5 mg PO BID 03/24/19 03/24/19 History cholecalciferol (vitamin D3) 2,000 unit PO DAILY 03/24/19 03/24/19 History [Vitamin D3] Allergies Allergy/AdvReac Type Severity Reaction Status Date / Time No Known Drug Allergies Allergy Verified 03/24/19 09:12 Review of Systems Constitutional Constitutional: Reports as per HPI Exam Vital Signs (past 8 hours): - 03/24/19 09:15 Temperature 97.5 F L Pulse Rate 58 L Respiratory Rate 16 Blood Pressure 138/76 Pulse Oximetry 99 Oxygen Delivery Method Room Air Narrative Exam Narrative: AAO, NAD, male of healthy weight EOMI, MMM, no scleral icterus unlabored RA soft, nt/nd MAEW visible skin dry and intact Assessment & Plan Assessment & Plan narrative: - surveillance colonoscopy --> all R/B/A discussed and pt wishes to proceed --> higher bleeding risk due to apaxiban, understnads higher bleeding risk; may monitor diminutive polyps not amenable to hot snare given this
[2019-03-24] MEDS: MIDAZOLAM 5 MG/5 ML VIAL IV (10:09)
[2019-03-24] MEDS: fentaNYL 250 MCG/5 ML INJ IV (10:11)
--- NOTE | 2019-03-24 10:19 | P.OP.ENDO_ITS ---
Operative Date/Time/Diagnoses Date of procedure: 03/24/19 Time of procedure: 10:17 Pre-op diagnosis: History of colon polyps Post-op diagnosis: same Procedure & Clinicians Study performed: Surveillance Colonoscopy Same procedure as scheduled: Yes Indications: 74yo M s/p R hemicolectomy for a large TVA. Here for surveillance. Recent cardiac workup so on apaxiban. Surgeon: Lillie Jacquesr Procedure Notes SCOAP/Timeout: 948 Procedure in detail: After obtaining informed consent, the patient was brought to the GI suite and placed in the left lateral decubitus position on the examination table. After placement of appropriate monitors, the patient was given incremental doses of Versed and Fentanyl until an appropriate level of sedation was achieved. A time out was held per SCOAP protocol. A digital rectal examination was performed and did not reveal any masses or obstructing lesions but a large prostate and prominent pelvic rim were noted. The colonoscope was gently passed into the patient's anus and the entire colon navigated to the level of the ileocolic anastomosis with some difficulty due to a tortuous sigmoid. Prep was adequate. Once at the anastomosis, the ileum was briefly canulated then the scope was slowly withdrawn being sure to go before and beyond all mucosal folds and prominences as able to get a thorough examination. No masses or polyps are noted. No other abnormal findings. At t he level of the rectal vault, the scope was retroflexed and the internal anal canal was examined noting small internal hemorrhoids. The scope was straightened and air aspirated from the colon. The instrument was removed from the patient's body and the procedure was concluded. The patient was allowed to awaken from sedation without difficulty and taken to the post-anesthesia care unit in good condition. Scope withdrawal time: 10 min Sedation minutes: 25 Findings: internal hemorrhoids (small) Specimen(s): none sent Complications: none Impression: 1. Small internal hemorrhoids 2. Enlarged prostate 3. Patent and healthy ileocolic anastomosis Recommendations: Colonscopy in 3 years Follow up: as needed Disposition: PACU
--- NOTE | 2019-03-24 11:12 | SUR.PHASEII ---
1100 Awake, tolerating PO well, talking with . Denies any dizziness or light headedness. States that his BP varies widely and finds his current level acceptable. Stable and feels well. Pleasant and talking.
== END 2019-03-24 11:10 | disposition home or self-care (01) ==
PROVIDERS: PCP Internal Medicine; Visit Provider Surgery
PROC: 0DJD8ZZ Inspection of Lower Intestinal Tract, Via Natural or Artificial Opening Endoscopic (ICD-10-PCS; CPT 45378; principal; 2019-03-24 10:45)
DX: Z86.010 Personal history of colon polyps (principal); K64.8 Other hemorrhoids; N40.0 Benign prostatic hyperplasia without lower urinary tract symptoms
CPT/HCPCS: G0105; 99152; J2250; J3010

== ENCOUNTER → 2019-04-25 08:56 | Outpatient (CLI) | payer MEDICARE, OTHER, SELFPAY ==
[2019-04-25 09:56] LABS: Alanine Aminotransferase 110 IU/L (21-72); Albumin Globulin Ratio 1.2 (1.0-2.8); Alkaline Phosphatase 330 U/L (38-126); Aspartate Aminotransferase 107 IU/L (17-59); BUN Creatinine Ratio 18.9 (6-22); Bilirubin Total 0.7 mg/dL (0.2-1.3); Blood Urea Nitrogen 17 mg/dL (9-20); Calcium 9.4 mg/dL (8.4-10.2); Carbon Dioxide 25 mmol/L (22-32); Chloride 107 mmol/L (98-107); Cholesterol 188 mg/dL (140-199); Estimated Glomerular Filt Rate > 60.0 mL/min (>60); Globulin 3.4 g/dL (1.7-4.1); Glucose 96 mg/dL (80-110); HDL Cholesterol 95 mg/dL (40-60); HEMOLYSIS < 15 (0-50); LDL Cholesterol Calculated 82 mg/dL (<100); Potassium 4.7 mmol/L (3.4-5.1); Sodium 140 mmol/L (137-145); Total Protein 7.4 g/dL (6.3-8.2); Triglycerides 55 mg/dL (35-150)
== END ==
PROVIDERS: PCP Internal Medicine; Visit Provider Specialist
DX: I10 Essential (primary) hypertension (principal); I48.0 Paroxysmal atrial fibrillation
CPT/HCPCS: 36415; 80053; 80061; 83735

== ENCOUNTER → 2019-05-06 09:07 | Outpatient (CLI) | payer MEDICARE, OTHER, SELFPAY ==
[2019-05-06 09:42] LABS: Add Manual Diff / Slide Review NO; Basophils Absolute Auto 100 /uL (0-100); Basophils Percent Auto 0.6 % (0-2); Eosinophils Absolute Auto 100 /uL (0-450); Eosinophils Percent Auto 1.1 % (2-4); Hematocrit 35.1 % (41-53); Hemoglobin 11.8 g/dL (13.5-17.5); Lymphocytes Absolute Auto 700 /uL (1100-4500); Lymphocytes Percent Auto 6.7 % (25-40); Mean Corpuscular HGB Conc 33.7 % (30-36); Mean Corpuscular Hemoglobin 32.6 PG (26-34); Mean Corpuscular Volume 96.8 fL (80-100); Monocytes Absolute Auto 1000 /uL (0-900); Monocytes Percent Auto 10.4 % (3-14); Neutrophils Absolute Auto 8100 /uL (1500-7000); Neutrophils Percent Auto 81.2 % (50-75); Platelet Count 263 X10^3/uL (150-400); Red Blood Cell Count 3.62 X10^6/uL (4.5-5.9); Red Cell Distribution Width 14.4 % (11.6-14.8); White Blood Cell Count 9.9 X10^3/uL (4.5-11.0)
[2019-05-06 10:00] LABS: Alanine Aminotransferase 90 IU/L (21-72); Albumin 3.9 g/dL (3.5-5.0); Albumin Globulin Ratio 1.3 (1.0-2.8); Alkaline Phosphatase 288 U/L (38-126); Aspartate Aminotransferase 94 IU/L (17-59); BUN Creatinine Ratio 18.8 (6-22); Bilirubin Total 0.8 mg/dL (0.2-1.3); Blood Urea Nitrogen 15 mg/dL (9-20); Calcium 9.7 mg/dL (8.4-10.2); Carbon Dioxide 26 mmol/L (22-32); Chloride 107 mmol/L (98-107); Cholesterol 184 mg/dL (140-199); Estimated Glomerular Filt Rate > 60.0 mL/min (>60); Globulin 3.1 g/dL (1.7-4.1); Glucose 99 mg/dL (80-110); HEMOLYSIS < 15 (0-50); Potassium 4.5 mmol/L (3.4-5.1); Sodium 140 mmol/L (137-145); Triglycerides 49 mg/dL (35-150)
[2019-05-06 10:11] LABS: LDL Cholesterol Calculated 62 mg/dL (<100)
[2019-05-06 10:12] LABS: HDL Cholesterol 112 mg/dL (40-60)
[2019-05-06 10:29] LABS: Prostate Specific Antigen Scrn 2.74 ng/mL (0.1-4.0)
== END ==
PROVIDERS: PCP Internal Medicine; Visit Provider Internal Medicine
DX: E78.00 Pure hypercholesterolemia, unspecified (principal); I48.0 Paroxysmal atrial fibrillation; Z12.5 Encounter for screening for malignant neoplasm of prostate
CPT/HCPCS: 36415; 80053; 80061; 85025; G0103

== ENCOUNTER → 2019-08-28 11:08 | Outpatient (CLI) | payer MEDICARE, OTHER, SELFPAY ==
--- NOTE | 2019-08-28 | DI.MRI.S_ITS ---
PROCEDURE: MR SHOULDER RT WO CON INDICATIONS: Pain in right shoulder TECHNIQUE: Noncontrast oblique coronal T2 fast spin echo with fat saturation, oblique sagittal T1 spin echo and T2 fast spin echo with fat saturation, axial T1 spin echo and T2 fast spin echo with fat saturation through the shoulder. COMPARISON: None. FINDINGS: Image quality: Diagnostic. Motion artifacts are noted. Rotator cuff: There is tendinosis and moderate grade articular surface partial thickness tear involving the supraspinatus and infraspinatus approximately 2 cm from their insertions on greater tuberosity with medial retraction of torn tendon fibers to the level of acromioclavicular joint. Tendinosis and moderate grade intrasubstance partial-thickness tear involving distal subscapularis is seen. Sagittal images demonstrate moderate supraspinatus muscle atrophy. Bones and bursae: Subacute to chronic appearing deformity involving anterior medial portion of the humeral head is seen. No definite acute fracture or dislocation. Moderate acromioclavicular joint and glenohumeral joint osteoarthritis is seen. Moderate amount of joint effusion is noted. There is suggestion of 1 x 0.7 cm intra-articular loose body and anterior aspect of joint space/subcoracoid bursa. Chronic appearing deformity involving glenoid is also noted. Capsule and soft tissues: In the absence of intra-articular contrast, there is suggestion of extensive right shoulder labral tear. The glenohumeral ligaments appear intact. The long head of the biceps tendon is not visualized within the joint space, likely represent a foreign proximal long head of biceps. The rotator interval appears normal, without fibrosis. The coracohumeral ligament is normal in thickness. IMPRESSION: 1. Moderate acromioclavicular joint and glenohumeral joint osteoarthritis with likely subacute to chronic deformity involving anterior medial humeral head and adjacent glenoid. No gross acute fracture or dislocation. Moderate amount of joint effusion and suggestion of anterior intra-articular loose body. 2. Tendinosis and moderate grade articular surface partial thickness tear involving supraspinatus and infraspinatus near musculotendinous junction. Tendinosis and moderate grade intrasubstance partial-thickness tear involving distal subscapularis. Moderate supraspinatus muscle atrophy. 3. Suggestion of extensive right shoulder labral tear. Suggestion of torn the intra-articular portion of long head of biceps tendon. Dictated by: Pedro Carnes M.D. on 08/28/2019 at 14:40 Approved by: Perdo Carnes M.D. on 08/28/2019 at 15:07
== END ==
PROVIDERS: PCP Internal Medicine; Visit Provider Orthopaedic Surgery
DX: M25.511 Pain in right shoulder (principal); M75.111 Incomplete rotator cuff tear or rupture of right shoulder, not specified as traumatic; M19.011 Primary osteoarthritis, right shoulder; M25.411 Effusion, right shoulder
CPT/HCPCS: 73221

== ENCOUNTER → 2019-09-04 11:59 | Outpatient (CLI) | payer MEDICARE, OTHER, SELFPAY ==
--- NOTE | 2019-09-04 | DI.RAD.S_ITS ---
PROCEDURE: XR CHEST 2V INDICATIONS: COUGH TECHNIQUE: 2 views of the chest were acquired. COMPARISON: [facility], , XR CHEST 1V, 12/09/2018, 8:14. [facility], CR, CHEST 2 VIEW, 01/11/2012, 15:44. [facility], CR, CHEST 2 VIEW, 12/18/2011, 11:58. [facility], CR, CHEST 2 VIEW, 10/18/2011, 17:15. FINDINGS: Surgical changes and devices: None. Lungs and pleura: There is a hazy opacity projecting over the right lung base which is slightly increased from prior comparison exams. No pleural effusion or pneumothorax. There is a 2 mm opacity projecting over the lateral left lung apex and posterior aspect of the left fourth rib that is stable in appearance on multiple prior comparison exams dating back to 10/18/11, consistent with benignity and likely representing either a pulmonary granuloma or a rib enostosis. Mediastinum: Mediastinal contours are normal. Heart size is normal. Bones and chest wall: There are multilevel degenerative changes of the spine. There are degenerative changes of the right glenohumeral joint and right humeral head. IMPRESSION: Hazy opacity projecting over the right lung base, slightly increased from prior comparison exams. This may represent atelectasis with prominent pulmonary vasculature, aspiration, or pneumonia in the appropriate clinical setting. Dictated by: Abhi Moore M.D. on 09/04/2019 at 16:34 Approved by: Abhi Moore M.D. on 09/04/2019 at 17:14
== END ==
PROVIDERS: PCP Internal Medicine; Visit Provider Physician Assistant
DX: R05 Cough (principal); R39.9 Unspecified symptoms and signs involving the genitourinary system
CPT/HCPCS: 71046; 87086

== ENCOUNTER → 2019-12-30 09:35 | Outpatient (CLI) | payer MEDICARE, OTHER, SELFPAY ==
[2019-12-30 11:29] LABS: Alanine Aminotransferase 135 IU/L (<50); Albumin 4.2 g/dL (3.5-5.0); Albumin Globulin Ratio 1.1 (1.0-2.8); Alkaline Phosphatase 331 U/L (38-126); Aspartate Aminotransferase 171 IU/L (17-59); Bilirubin Total 0.6 mg/dL (0.2-1.3); Blood Urea Nitrogen 24 mg/dL (9-20); Calcium 9.8 mg/dL (8.4-10.2); Carbon Dioxide 24 mmol/L (22-32); Chloride 107 mmol/L (98-107); Cholesterol 216 mg/dL (140-199); Estimated Glomerular Filt Rate > 60.0 mL/min (>60); Globulin 3.9 g/dL (1.7-4.1); Glucose 106 mg/dL (80-110); HDL Cholesterol 104 mg/dL (40-60); HEMOLYSIS < 15 (0-50); LDL Cholesterol Calculated 97 mg/dL (<100); Magnesium 2.1 mg/dL (1.6-2.3); Potassium 5.1 mmol/L (3.4-5.1); Sodium 137 mmol/L (137-145); Total Protein 8.1 g/dL (6.3-8.2); Triglycerides 74 mg/dL (35-150)
== END ==
PROVIDERS: PCP Internal Medicine; Referring Provider Specialist; Visit Provider Specialist
DX: I48.0 Paroxysmal atrial fibrillation (principal); I10 Essential (primary) hypertension
CPT/HCPCS: 36415; 80053; 80061; 83735

== ENCOUNTER → 2020-01-27 16:31 | Outpatient (CLI) | payer MEDICARE, OTHER, SELFPAY ==
[2020-01-27 18:51] LABS: Vitamin B12 774 pg/mL (239-931)
== END ==
PROVIDERS: PCP Internal Medicine; Referring Provider Internal Medicine; Visit Provider Internal Medicine
DX: G60.9 Hereditary and idiopathic neuropathy, unspecified (principal)
CPT/HCPCS: 36415; 82607

== ENCOUNTER → 2020-04-19 13:51 | Outpatient (CLI) | payer MEDICARE, OTHER, SELFPAY ==
--- NOTE | 2020-04-19 | DI.MRI.S_ITS ---
PROCEDURE: MR LUMBAR SPINE WO CON INDICATIONS: Spondylolysis, lumbar region TECHNIQUE: Noncontrast sagittal T1 spin echo and T2 fast echo, sagittal STIR, axial T1 and T2 fast spin echo through the lumbar spine. In cases with scoliosis, additional coronal T2 fast spin echo may be performed. COMPARISON: None. FINDINGS: Image quality: Excellent. Alignment and Curvature: Grade 1 retrolisthesis of L1 on L2. Grade 1 anterolisthesis of L4 on L5. Dextrocurvature of the lumbar spine. No acute vertebral body compression fractures. Scattered degenerative subchondral sclerosis and spurring. Spinal Cord: Conus medullaris terminates at the L1-L2 level. Visualized cord demonstrates normal signal and size. Paraspinous Soft Tissues: No paravertebral masses. L1-L2: Mild canal narrowing. Partial effacement of the left lateral recess, with posterior displacement of the left descending L2 nerve root. The right lateral recess appears grossly patent. Mild right foraminal narrowing with slight nerve root compression. Moderate left foraminal stenosis with nerve root compression. L2-L3: Mild canal stenosis. Partial effacement of both lateral recesses with bilaterally symmetric appearance. Mild left foraminal stenosis with nerve root compression. Moderate foraminal stenosis with nerve root compression. L3-L4: Mild canal narrowing. Partial effacement of both lateral recesses with bilaterally symmetric appearance. Mild right foraminal stenosis. Mild left foraminal narrowing with slight nerve root compression. L4-L5: Severe canal stenosis. Severe partial effacement of both lateral recesses with bilaterally symmetric appearance. Moderate left foraminal stenosis with slight nerve root compression. Moderate to severe right foraminal stenosis with nerve root compression L5-S1: Mild canal narrowing. Partial effacement of both lateral recesses with bilaterally symmetric appearance. Mild right foraminal stenosis with nerve root compression. Mild left foraminal stenosis with nerve root compression.. IMPRESSION: Multilevel lumbar spondylosis and facet arthropathy. Severe L4-L5 canal stenosis Numerous, bilateral foraminal stenoses as detailed above by spinal level. Asymmetric narrowing of the L1-L2 left lateral recess, with possible impingement of the descending left L2 nerve root. Dextroscoliosis. Multilevel spondylolisthesis as above. Dictated by: Brayden Claire M.D. on 04/19/2020 at 17:00 Approved by: Brayden Claire M.D. on 04/19/2020 at 17:10
== END ==
PROVIDERS: PCP Internal Medicine; Referring Provider Orthopaedic Surgery; Visit Provider Orthopaedic Surgery
DX: M47.816 Spondylosis without myelopathy or radiculopathy, lumbar region (principal); M48.061 Spinal stenosis, lumbar region without neurogenic claudication; M48.07 Spinal stenosis, lumbosacral region; M43.16 Spondylolisthesis, lumbar region; M41.86 Other forms of scoliosis, lumbar region
CPT/HCPCS: 72148

== ENCOUNTER → 2020-05-07 08:54 | Outpatient (CLI) | payer MEDICARE, OTHER, SELFPAY ==
[2020-05-07 09:44] LABS: Add Manual Diff / Slide Review NO; Basophils Absolute Auto 100 /uL (0-100); Basophils Percent Auto 0.6 % (0-2); Eosinophils Absolute Auto 100 /uL (0-450); Eosinophils Percent Auto 0.9 % (2-4); Hematocrit 32.1 % (41-53); Hemoglobin 10.9 g/dL (13.5-17.5); Lymphocytes Absolute Auto 700 /uL (1100-4500); Lymphocytes Percent Auto 6.4 % (25-40); Mean Corpuscular HGB Conc 33.8 % (30-36); Mean Corpuscular Hemoglobin 32.7 PG (26-34); Mean Corpuscular Volume 96.6 fL (80-100); Monocytes Absolute Auto 1000 /uL (0-900); Monocytes Percent Auto 8.7 % (3-14); Neutrophils Absolute Auto 9200 /uL (1500-7000); Neutrophils Percent Auto 83.4 % (50-75); Platelet Count 313 X10^3/uL (150-400); Red Blood Cell Count 3.33 X10^6/uL (4.5-5.9); Red Cell Distribution Width 13.6 % (11.6-14.8)
[2020-05-07 09:53] LABS: Alanine Aminotransferase 63 IU/L (<50); Albumin 3.5 g/dL (3.5-5.0); Albumin Globulin Ratio 1.1 (1.0-2.8); Alkaline Phosphatase 337 U/L (38-126); Aspartate Aminotransferase 59 IU/L (17-59); BUN Creatinine Ratio 15.7 (6-22); Bilirubin Total 0.7 mg/dL (0.2-1.3); Blood Urea Nitrogen 14 mg/dL (9-20); Calcium 9.1 mg/dL (8.4-10.2); Carbon Dioxide 26 mmol/L (22-32); Chloride 105 mmol/L (98-107); Cholesterol 163 mg/dL (140-199); Estimated Glomerular Filt Rate > 60.0 mL/min (>60); Globulin 3.3 g/dL (1.7-4.1); Glucose 107 mg/dL (80-110); HDL Cholesterol 88 mg/dL (40-60); HEMOLYSIS < 15 (0-50); LDL Cholesterol Calculated 63 mg/dL (<100); Magnesium 1.9 mg/dL (1.6-2.3); Potassium 4.7 mmol/L (3.4-5.1); Sodium 137 mmol/L (137-145); Total Protein 6.8 g/dL (6.3-8.2); Triglycerides 62 mg/dL (35-150)
[2020-05-07 10:41] LABS: Vitamin B12 > 1000 pg/mL (239-931)
== END ==
PROVIDERS: Specialist; PCP Internal Medicine; Referring Provider Internal Medicine; Visit Provider Internal Medicine
DX: E78.00 Pure hypercholesterolemia, unspecified (principal); E78.2 Mixed hyperlipidemia; D64.9 Anemia, unspecified; I48.0 Paroxysmal atrial fibrillation
CPT/HCPCS: 36415; 80053; 80061; 82607; 83735; 85025

== ENCOUNTER → 2020-05-21 09:18 | Outpatient (CLI) | payer MEDICARE, OTHER, SELFPAY ==
[2020-05-21 10:34] LABS: Reticulocyte Count, Percent 1.2 % (0.87-2.60)
[2020-05-21 10:59] LABS: HEMOLYSIS < 15 (0-50); Iron 74 ug/dL (49-181)
[2020-05-21 11:09] LABS: Percent Iron Saturation 25 % (20-50); Total Iron Binding Capacity 299 ug/dL (261-462); Transferrin 244 mg/dL (206-381)
[2020-05-21 11:33] LABS: Ferritin 69 ng/mL (18-464)
== END ==
PROVIDERS: PCP Internal Medicine; Referring Provider Internal Medicine; Visit Provider Internal Medicine
DX: D64.9 Anemia, unspecified (principal)
CPT/HCPCS: 36415; 82728; 83540; 83550; 85045

== ENCOUNTER 2020-05-26 03:38 | Emergency (ER) | payer MEDICARE, OTHER, SELFPAY ==
--- NOTE | 2020-05-26 03:47 | DI.RAD.S_ITS ---
PROCEDURE: XR ELBOW RT MIN 3V INDICATIONS: pain after fall TECHNIQUE: 3 views of the elbow were acquired. COMPARISON: None. FINDINGS: Bones: No fractures or dislocations. No suspicious bony lesions. Severe elbow joint osteoarthritis. Soft tissues: Large joint effusion noted. No suspicious soft tissue calcifications. IMPRESSION: Large joint effusion in the setting of trauma suspicious for occult fracture. No fracture. Recommend further assessment with repeat radiographs (7-10 days) or advanced imaging (e.g. CT, MRI or bone scan). Dictated by: Hilary Delacruz MD, PhD on 05/26/2020 at 8:14 Approved by: Hilary Delacruz MD, PhD on 05/26/2020 at 8:16
[2020-05-26 04:00] VITALS: BP 178/80; PULSE 67; RESP 20; TEMP 36.6; O2SAT 100
--- NOTE | 2020-05-26 04:12 | ED.GENADULT ---
HPI - General Adult General Chief complaint: Extremity Injury, Upper Stated complaint: right elbow pain fell walking in the park Time Seen by Provider: 05/26/20 03:47 Source: patient Mode of arrival: Ambulatory Limitations: no limitations History of Present Illness HPI narrative: Patient is a 75-year-old male on anticoagulation here for evaluation of a right elbow injury. Patient states that yesterday he was walking around [facility] when he tripped over a tree root and fell forward. He was able to catch himself with his hands. He did not hit his head. He had no loss of consciousness. Initially had no right elbow pain but is the evening/night went on he developed more pain. He states that is now the point where he has difficulty with bending his elbow. No interventions prior to arrival. Related Data Home Medications Medication Instructions Recorded Confirmed FOLIC ACID/VIT A/VIT B1/VIT 1 tab PO BID #0 06/04/12 03/24/19 (#MULTIVITAMIN) [ibuprofen ] 100 mg PO #0 06/04/12 01/30/19 alendronate [Fosamax] 70 mg PO QWEEK #0 03/06/17 03/24/19 calcium citrate 600 mg BID #0 03/06/17 03/24/19 loperamide [Imodium A-D] 1 mg PO PRN PRN #0 03/26/17 03/24/19 finasteride 5 mg PO DAILY 12/09/18 03/24/19 pantoprazole 40 mg PO DAILY 12/09/18 03/24/19 Eliquis 5 mg PO BID 03/24/19 03/24/19 cholecalciferol (vitamin D3) 2,000 unit PO DAILY 03/24/19 03/24/19 [Vitamin D3] Previous Rx's Medication Instructions Recorded hydrocodone-acetaminophen [[place]] 1 - 2 tab PO Q6HP PRN #10 tab 03/06/17 metoprolol tartrate 12.5 mg PO BID #30 tab 12/09/18 Allergies Allergy/AdvReac Type Severity Reaction Status Date / Time No Known Drug Allergies Allergy Verified 03/24/19 09:12 Review of Systems Constitutional Constitutional: Denies fever(s) Musculoskeletal Musculoskeletal: Denies tingling Comments: Right elbow pain Integumentary/Breasts Skin/Breast: Denies lesions and Denies rash Neurologic Neurologic: Denies tingling Hematologic/Lymphatic Comments: On anticoagulation Patient History Medical History BPH (benign prostatic hyperplasia) (Chronic) Crohn's disease (Chronic) Pancreatic cancer (Chronic) Social History household members: spouse Smoking Status: Never smoker Smoking Status: Never smoker alcohol intake frequency: a few times a month Substance Use Type: does not use Exam Initial Vital Signs Initial Vital Signs: Vital Signs Temperature 97.9 F 05/26/20 04:00 Pulse Rate 67 05/26/20 04:00 Respiratory Rate 20 05/26/20 04:00 Blood Pressure 178/80 H 05/26/20 04:00 Pulse Oximetry 100 05/26/20 04:00 Const General: cooperative and comfortable Limitations: mental status not altered HENMT Head: normal to inspection and normocephalic Cardio Pulses: radial pulses present on the right Skin Lesions: no lesions Rashes: no rashes Neuro Sensory Exam: no sensory deficits noted Extrem Other: Right shoulder unremarkable. Right upper arm unremarkable. Patient has tenderness to palpation with some crepitus around the radial head. Also has tenderness along the posterior aspect in the olecranon process. Patient cannot supinate. Is holding his arm in pronation. His right wrist is unremarkable. Is right-hand unremarkable. Psych Appearance: grossly normal and well kempt Procedures Orthopedic Splinting/Casting Injury #1: Side: right Upper Extremity Injury Location: elbow Upper Extremity Immobilizer: sugar tong splint (Long-arm) Other Orthopedic Equipment: other (Sling) Post splinting neuro exam: intact Post splinting vascular exam: intact Placed by: Provider Course Orders Ordered: ED Orders 05/26/20 03:47 XR elbow RT min 3V Stat Discontinued Medications Hydrocodone Bitart/Acetaminophen ([place] 5/325) 1 tab PO NOW ONE Stop: 05/26/20 04:13 Last Admin: 05/26/20 04:18 Dose: 1 tab Documented by: NOEMI Hydrocodone Bitart/Acetaminophen ([place] 5/325 Prepack) 1 bottle MISC SEEINSTR ONE Stop: 05/26/20 04:37 Vital Signs Vital signs: Vital Signs - 8 hr 05/26/20 04:00 Temperature 97.9 F Pulse Rate 67 Respiratory Rate 20 Blood Pressure 178/80 H Pulse Oximetry 100 Medical Decision Making Imaging Data Extremity x-ray #1: Radiologist's Impression: Subtle cortical irregularity along the lateral aspect of the radial head which could represent a nondisplaced fracture. If findings are equivocal clinical exam consider CT. Joint effusion MDM Narrative Medical decision making narrative: Given the findings on the x-ray and also the physical exam findings I do suspect that he has a radial head fracture. He was placed in a right long-arm sugar-tong splint. He is given care instructions and return precautions and follow-up instructions. No other injuries reported from the event by the patient or found on exam. Discharge Plan Departure Patient Disposition: Home Clinical Impression: Fracture of head of right radius Qualifiers: Encounter type: initial encounter Fracture type: closed Fracture alignment: nondisplaced Qualified Code(s): S52.124A - Nondisplaced fracture of head of right radius, initial encounter for closed fracture Instructions: How to Use a Sling, DI for Elbow Fracture, How to Take Care of Your Splint Activity Restrictions/Additional Instructions: The splint needs to stay on a needs to stay clean and stay dry. I recommend that tomorrow you keep your appointment with the orthopedic providers for the shot in your back. You can talk with them about further evaluation of your elbow injury. If for some reason they cannot follow you up for this I recommend you contact your primary provider or you can contact the [facility] group here in [place] at [phone]. The pain medication you were given this evening can make you drowsy. Return to the emergency department for any new or worsening symptoms Prescriptions: No Action [ibuprofen ] 100 mg PO Qty: 0 RF: 0 FOLIC ACID/VIT A/VIT B1/VIT (#MULTIVITAMIN) 1 tab PO BID Qty: 0 RF: 0 alendronate [Fosamax] 70 MG tablet 70 mg PO QWEEK Qty: 0 RF: 0 calcium citrate 250 MG tablet 600 mg BID Qty: 0 RF: 0 hydrocodone-acetaminophen [[place]] 5 MG/325 MG tablet 1 - 2 tab PO Q6HP PRNQty: 10 RF: 0 loperamide [Imodium A-D] 1 MG/7.5 ML liquid 1 mg PO PRN PRN (Reason: Diarrhea) Qty: 0 RF: 0 pantoprazole 40 mg tablet,delayed release (/EC) 40 mg PO DAILY RF: 0 finasteride 5 mg tablet 5 mg PO DAILY RF: 0 metoprolol tartrate 25 mg tablet 12.5 mg PO BID Qty: 30 RF: 0 cholecalciferol (vitamin D3) [Vitamin D3] 2,000 unit Capsule 2,000 unit PO DAILY RF: 0 Eliquis 5 mg Tablet 5 mg PO BID RF: 0 Referrals: Jamin Pizarro MD [Primary Care Provider] -
[2020-05-26] MEDS: HYDROCODONE/ACET 5/325 TABLET 1 TAB PO (04:18)
[2020-05-26] MEDS: HYDROCODONE/ACET 5/325 PREPACK 1 BOTTLE MISC (04:41)
[2020-05-26 04:52] VITALS: BP 169/80; RESP 16; O2SAT 100
== END 2020-05-26 04:52 | disposition home or self-care (01) ==
PROVIDERS: Emergency Provider Emergency Medicine; PCP Internal Medicine
DX: S52.124A Nondisplaced fracture of head of right radius, initial encounter for closed fracture (principal); W18.30XA Fall on same level, unspecified, initial encounter; Y92.830 Public park as the place of occurrence of the external cause
CPT/HCPCS: 29105; 73080; 99283; 99284

== ENCOUNTER → 2020-05-27 12:55 | Outpatient (CLI) | payer MEDICARE, OTHER, SELFPAY | PROVIDERS: PCP Internal Medicine; Referring Provider Internal Medicine; Visit Provider Internal Medicine | DX: M85.851 Other specified disorders of bone density and structure, right thigh (principal); M06.9 Rheumatoid arthritis, unspecified; K92.9 Disease of digestive system, unspecified; Z82.62 Family history of osteoporosis | CPT/HCPCS: 77080 ==

== ENCOUNTER → 2020-06-03 10:44 | Outpatient (CLI) | payer MEDICARE, OTHER, SELFPAY ==
--- NOTE | 2020-06-03 | DI.CT.S_ITS ---
PROCEDURE: CT UE RT WO CON INDICATIONS: Unspecified fracture of lower end of right humerus TECHNIQUE: Noncontrast 1-1.5 mm axial sections were acquired through the elbow joint, with coronal and sagittal reformats. COMPARISON: [facility], CR, XR ELBOW 3+ VIEWS RIGHT, 05/28/2020, 11:01. FINDINGS: Image quality: Excellent. Bones: As seen on previous elbow radiograph, there is a slightly impacted radial head/neck fracture with fracture line extending to its articulation with capitellum. No significant displacement is seen. No acute proximal ulnar or fracture is seen. Osteoarthritic changes are noted throughout elbow joints with joint space narrowing, subchondral sclerosis and tiny marginal osteophyte formation. No definite fracture is seen in distal humerus or humeral condyle. Proximal olecranon enthesophyte formation at distal triceps tendon insertion is seen. Soft tissues: There is moderate amount of joint effusion with displacement of both anterior and posterior fat pads. Linear calcifications adjacent to lateral epicondyle is seen at common extensor tendon insertion suggestive of a calcific tendonitis and old avulsion injury. IMPRESSION: 1. Slightly impacted and nondisplaced radial head and neck fracture extending to its articulation with capitellum is seen. No other fracture or dislocation is noted. 2. Moderate joint effusion. Moderate elbow joint osteoarthritis. 3. Suggestion of calcific tendinitis involving common extensor tendon origin versus old avulsion injury. Dictated by: Pedro Carnes M.D. on 06/03/2020 at 12:27 Approved by: Pedro Carnes M.D. on 06/03/2020 at 12:33
== END ==
PROVIDERS: PCP Internal Medicine; Referring Provider Orthopaedic Surgery Adult Reconstructive Orthopaedic Surgery; Visit Provider Orthopaedic Surgery Adult Reconstructive Orthopaedic Surgery
DX: S52.124A Nondisplaced fracture of head of right radius, initial encounter for closed fracture (principal); S52.134A Nondisplaced fracture of neck of right radius, initial encounter for closed fracture; M19.021 Primary osteoarthritis, right elbow; X58.XXXA Exposure to other specified factors, initial encounter
CPT/HCPCS: 73200

== ENCOUNTER → 2020-09-07 12:36 | Outpatient (ROUT) | payer MEDICARE, SELFPAY ==
[2020-09-07 12:44] LABS: Hematocrit 35.4 % (41-53); Hemoglobin 11.5 g/dL (13.5-17.5); Mean Corpuscular HGB Conc 32.4 % (30-36); Mean Corpuscular Hemoglobin 31.1 PG (26-34); Mean Corpuscular Volume 95.9 fL (80-100); Platelet Count 268 X10^3/uL (150-400); Red Blood Cell Count 3.69 X10^6/uL (4.5-5.9); Red Cell Distribution Width 15.4 % (11.6-14.8)
[2020-09-07 12:52] LABS: Reticulocyte Count, Percent 1.3 % (0.87-2.60)
== END ==
PROVIDERS: PCP Internal Medicine; Visit Provider Internal Medicine
DX: D64.9 Anemia, unspecified (principal)
CPT/HCPCS: 85027; 85045

== ENCOUNTER → 2020-10-06 09:08 | Outpatient (CLI) | payer MEDICARE, SELFPAY ==
[2020-10-06 10:12] LABS: Alanine Aminotransferase 145 IU/L (<50); Albumin 4.1 g/dL (3.5-5.0); Albumin Globulin Ratio 1.2 (1.0-2.8); Alkaline Phosphatase 413 U/L (38-126); Aspartate Aminotransferase 167 IU/L (17-59); BUN Creatinine Ratio 20.4 (6-22); Bilirubin Total 0.7 mg/dL (0.2-1.3); Blood Urea Nitrogen 20 mg/dL (9-20); Calcium 9.4 mg/dL (8.4-10.2); Carbon Dioxide 27 mmol/L (22-32); Chloride 108 mmol/L (98-107); Estimated Glomerular Filt Rate > 60.0 mL/min (>60); Globulin 3.3 g/dL (1.7-4.1); Glucose 104 mg/dL (80-110); HEMOLYSIS < 15 (0-50); Magnesium 1.8 mg/dL (1.6-2.3); Potassium 4.9 mmol/L (3.4-5.1); Sodium 138 mmol/L (137-145); Total Protein 7.4 g/dL (6.3-8.2)
[2020-10-12 10:19] LABS: LDL Particle SEE SEPARATE REPORTS
== END ==
PROVIDERS: PCP Internal Medicine; Referring Provider Specialist; Visit Provider Specialist
DX: E78.00 Pure hypercholesterolemia, unspecified (principal); I10 Essential (primary) hypertension
CPT/HCPCS: 36415; 80053; 80061; 83704; 83735

== ENCOUNTER → 2020-11-10 08:06 | Outpatient (CLI) | payer MEDICARE, SELFPAY ==
[2020-11-10 09:25] LABS: BUN Creatinine Ratio 23.8 (6-22); Blood Urea Nitrogen 25 mg/dL (9-20); Calcium 9.2 mg/dL (8.4-10.2); Carbon Dioxide 22 mmol/L (22-32); Chloride 111 mmol/L (98-107); Estimated Glomerular Filt Rate > 60.0 mL/min (>60); Glucose 95 mg/dL (80-110); HEMOLYSIS < 15 (0-50); Potassium 4.5 mmol/L (3.4-5.1); Sodium 138 mmol/L (137-145)
== END ==
PROVIDERS: PCP Internal Medicine; Referring Provider Specialist; Visit Provider Specialist
DX: I10 Essential (primary) hypertension (principal)
CPT/HCPCS: 36415; 80048

== ENCOUNTER → 2021-04-06 07:59 | Outpatient (CLI) | payer MEDICARE, SELFPAY ==
[2021-04-06 10:00] LABS: Alanine Aminotransferase 103 IU/L (<50); Albumin 3.3 g/dL (3.5-5.0); Albumin Globulin Ratio 1.1 (1.0-2.8); Alkaline Phosphatase 411 U/L (38-126); Aspartate Aminotransferase 118 IU/L (17-59); BUN Creatinine Ratio 18.4 (6-22); Bilirubin Total 0.5 mg/dL (0.2-1.3); Blood Urea Nitrogen 19 mg/dL (9-20); Calcium 9.1 mg/dL (8.4-10.2); Carbon Dioxide 24 mmol/L (22-32); Chloride 109 mmol/L (98-107); Estimated Glomerular Filt Rate > 60.0 mL/min (>60); Globulin 3.1 g/dL (1.7-4.1); Glucose 91 mg/dL (80-110); HEMOLYSIS < 15 (0-50); Magnesium 2.1 mg/dL (1.6-2.3); Potassium 4.7 mmol/L (3.4-5.1); Sodium 136 mmol/L (137-145); Total Protein 6.4 g/dL (6.3-8.2)
== END ==
PROVIDERS: PCP Internal Medicine; Referring Provider Specialist; Visit Provider Specialist
DX: I47.2 Ventricular tachycardia (principal); I10 Essential (primary) hypertension
CPT/HCPCS: 36415; 80053; 83735

== ENCOUNTER 2021-05-17 12:26 | Emergency (ER) | payer MEDICARE, SELFPAY ==
[2021-05-17] VITALS (7 sets, daily range): BP systolic 169–198; BP diastolic 79–91; PULSE 62–72; RESP 14–30; TEMP 36.4; O2SAT 98–100; BMI 19.0
--- NOTE | 2021-05-17 13:08 | DI.RAD.S_ITS ---
PROCEDURE: XR CHEST 1V INDICATIONS: elevated BP, neck pain, a fib TECHNIQUE: One view of the chest was acquired. COMPARISON: [facility], CR, XR SHOULDER 2+ VIEWS RIGHT, 08/15/2019, 11:14. [facility], CR, XR CHEST 2V, 09/04/2019, 12:03. FINDINGS: Surgical changes and devices: Electronic device projects over the chest, likely outside the patient Lungs and pleura: Lungs are clear. No pleural effusions or pneumothorax. Mediastinum: Mediastinal contours appear normal. Heart size is normal. Mild atherosclerotic calcifications in the aorta. Bones and chest wall: Degenerative changes are seen in the included spine. There is chronic irregularity of the right humeral head and glenohumeral degenerative changes. IMPRESSION: No acute cardiopulmonary abnormality. Dictated by: Edgar Spear M.D. on 05/17/2021 at 13:20 Approved by: Edgar Spear M.D. on 05/17/2021 at 13:23
--- NOTE | 2021-05-17 13:14 | PC.NURSE ---
Pt states h/o afib and taking eliquis, not currently in Afib. wearing a holter type monitor given by Dr Willams and states being worked up for a pacemaker but unsure why. States he is more concerned for his increasing BP--170's systolic at home and now 203/94. Denies chest pain, SOB. reports pain in L neck which is letting up nothing makes it better or worse. Whipple procedure in January 2009.
[2021-05-17 13:37] LABS: Add Manual Diff / Slide Review NO; Basophils Absolute Auto 100 /uL (0-100); Basophils Percent Auto 0.8 % (0-2); Eosinophils Absolute Auto 100 /uL (0-450); Eosinophils Percent Auto 0.6 % (2-4); Hematocrit 31.7 % (41-53); Hemoglobin 10.3 g/dL (13.5-17.5); Lymphocytes Absolute Auto 800 /uL (1100-4500); Lymphocytes Percent Auto 8.4 % (25-40); Mean Corpuscular HGB Conc 32.6 % (30-36); Mean Corpuscular Hemoglobin 30.7 PG (26-34); Mean Corpuscular Volume 94.2 fL (80-100); Monocytes Absolute Auto 900 /uL (0-900); Monocytes Percent Auto 9.8 % (3-14); Neutrophils Absolute Auto 7400 /uL (1500-7000); Neutrophils Percent Auto 80.4 % (50-75); Platelet Count 240 X10^3/uL (150-400); Red Blood Cell Count 3.36 X10^6/uL (4.5-5.9); Red Cell Distribution Width 15.4 % (11.6-14.8); White Blood Cell Count 9.2 X10^3/uL (4.5-11.0)
--- NOTE | 2021-05-17 13:42 | ED.ARRPALP ---
HPI - Arrhythmia/Palpitations General Chief Complaint: Arrhythmia/Palpitations Stated Complaint: high blood pressure, neck pain, lower back pain Time Seen by Provider: 05/17/21 13:05 Source: patient Mode of arrival: Ambulatory Limitations: no limitations History of Present Illness HPI narrative: Patient is a 76-year-old male who is here for evaluation of palpitations. Also complaining of lower back pain but this is not new for him. Also complaining of elevated blood pressure. He take his medications a little later than normal this morning. Also complaining of shortness of breath but this is not new for him. Also some neck discomfort. He is wearing a Holter monitor. This is ordered by his executive chairman. He also states that a couple days ago he had an episode where he thought he had a stroke. He was out on a walk. After approximately half a mile he had a hard time getting back to his car. He states he was walking like he was drunk. All those symptoms have completely resolved. This morning he felt like he had another episode of atrial fibrillation which is what brought him to the emergency department. Related Data Home Medications Medication Instructions Recorded Confirmed FOLIC ACID/VIT A/VIT B1/VIT 1 tab PO BID #0 06/04/12 05/17/21 (#MULTIVITAMIN) [ibuprofen ] 200 mg PO BID PRN #0 06/04/12 05/17/21 alendronate 70 mg tablet (Fosamax) 70 mg PO QWEEK #0 03/06/17 05/17/21 calcium citrate 600 mg BID #0 03/06/17 05/17/21 loperamide 1 mg/7.5 mL oral liquid 1 mg PO PRN PRN #0 03/26/17 05/17/21 (Imodium A-D) finasteride 5 mg tablet 5 mg PO DAILY 12/09/18 05/17/21 pantoprazole 40 mg tablet,delayed 40 mg PO DAILY 12/09/18 05/17/21 release apixaban 5 mg tablet (Eliquis) 5 mg PO BID 03/24/19 05/17/21 cholecalciferol (vitamin D3) 50 2,000 unit PO DAILY 03/24/19 05/17/21 mcg (2,000 unit) capsule (Vitamin D3) metronidazole 0.75 % topical cream 1 applic TOPICAL BID 05/17/21 05/17/21 Previous Rx's Medication Instructions Recorded metoprolol tartrate 25 mg tablet 12.5 mg PO BID #30 tab 12/09/18 Allergies Allergy/AdvReac Type Severity Reaction Status Date / Time No Known Drug Allergies Allergy Verified 05/17/21 12:30 Review of Systems Constitutional Constitutional: Denies headache(s) ENT Ears, Nose, Mouth, and Throat: Denies vertigo, Denies dizziness and Denies headache(s) Cardiovascular Cardiovascular: Reports as per HPI, Denies chest pain, Reports rapid heart rate, Denies lightheadedness and Reports dyspnea Respiratory Respiratory: Reports as per HPI, Denies cough and Reports dyspnea Gastrointestinal Gastrointestinal: Reports system reviewed and no additional complaints, except as documented Musculoskeletal Musculoskeletal: Reports system reviewed and no additional complaints, except as documented Integumentary/Breasts Skin/Breast: Reports system reviewed and no additional complaints, except as documented Neurologic Neurologic: Reports system reviewed and no additional complaints, except as documented, Denies confusion, Denies vertigo, Denies dizziness and Denies headache(s) Psychiatric Psychiatric: Denies confusion Hematologic/Lymphatic On Anticoagulants: No Allergic/Immunologic Allergic/Immunologic: Reports system reviewed and no additional complaints, except as documented Patient History Medical History (Updated 05/17/21 @ 14:44 by Hi Alvarado DO) BPH (benign prostatic hyperplasia) Crohn's disease Pancreatic cancer Social History household members: spouse Smoking Status: Never smoker Smoking Status: Never smoker alcohol intake frequency: 3 or more drinks per day Substance Use Type: does not use Exam Initial Vital Signs Initial Vital Signs: Vital Signs Temperature 97.5 F L 05/17/21 12:29 Pulse Rate 72 05/17/21 12:29 Respiratory Rate 14 05/17/21 12:29 Blood Pressure 170/89 H 05/17/21 12:29 Pulse Oximetry 100 05/17/21 12:29 Const General: cooperative, comfortable and well developed Limitations: altered mental status HENMT Head: normal to inspection and normocephalic Chest Chest: normal inspection of the chest Resp Effort & Inspection: normal respiratory effort Auscultation: clear to auscultation bilaterally Cardio Rate: regular rate Rhythm: regular rhythm GI Inspection: normal to inspection Back/Spine/Pelvis Back: normal to inspection Skin Lesions: no lesions Rashes: no rashes Neuro General: patient alert, patient awake, patient oriented x3 and moves all extremities Extrem General: normal to inspection, capillary refill normal and No edema Psych Appearance: grossly normal and well kempt Course Orders Ordered: ED Orders 05/17/21 12:34 EKG-12 Lead Stat 05/17/21 13:08 XR chest 1V Stat 05/17/21 13:30 Basic Metabolic Panel Stat Complete Blood Count AUTO DIFF Stat Troponin & CK Cardiac Panel Stat Vital Signs Vital signs: Vital Signs - 8 hr 05/17/21 12:29 05/17/21 13:11 05/17/21 13:30 Temperature 97.5 F L Pulse Rate 72 66 70 Respiratory Rate 14 18 26 H Blood Pressure 170/89 H Pulse Oximetry 100 98 100 05/17/21 13:32 05/17/21 14:00 05/17/21 14:01 Temperature Pulse Rate 68 62 63 Respiratory Rate 30 H 19 24 Blood Pressure 198/91 H 169/79 H Pulse Oximetry 100 100 100 MDM - Arrhythmia/Palpitations Lab Data Attestation: I reviewed the patient's lab results. Result diagrams: 05/17/21 13:30 05/17/21 13:30 Labs: Lab Results 05/17/21 05/17/21 Range/Units 13:30 13:30 WBC 9.2 (4.5-11.0) X10^3/uL RBC 3.36 L (4.5-5.9) X10^6/uL Hgb 10.3 L (13.5-17.5) g/dL Hct 31.7 L (41-53) % MCV 94.2 (80-100) fL MCH 30.7 (26-34) PG MCHC 32.6 (30-36) % RDW 15.4 H (11.6-14.8) % Plt Count 240 (150-400) X10^3/uL Neut % (Auto) 80.4 H (50-75) % Lymph % (Auto) 8.4 L (25-40) % [place] % (Auto) 9.8 (3-14) % Eos % (Auto) 0.6 L (2-4) % Baso % (Auto) 0.8 (0-2) % Neut # (Auto) 7400 H (1239-4470) /uL Lymph # (Auto) 800 L (4781-3866) /uL [place] # (Auto) 900 (0-900) /uL Eos # (Auto) 100 (0-450) /uL Baso # (Auto) 100 (0-100) /uL Sodium 136 L (137-145) mmol/L Potassium 5.1 (3.4-5.1) mmol/L Chloride 109 H (98-107) mmol/L Carbon Dioxide 24 (22-32) mmol/L BUN 16 (9-20) mg/dL Creatinine 0.93 (0.66-1.25) mg/dL Estimated GFR > 60.0 (>60) mL/min BUN/Creatinine Ratio 17.2 (6-22) Glucose 91 (80-110) mg/dL Calcium 9.3 (8.4-10.2) mg/dL Total Creatine Kinase 193 H (55-170) U/L CK-MB (CK-2) 8.36 H (<2.37) ng/mL CK-MB (CK-2) Rel Index 4.3 (1.5-5.0) % Troponin I 0.022 (0.01-0.034) ng/mL ECG Data Attestation: I personally reviewed and interpreted this ECG as follows: Interpretation: Sinus rhythm Ventricular rate is 63 First-degree AV block Left axis deviation Normal QRS Normal QTC No ST T wave changes MDM Narrative Medical decision making narrative: Patient did have frequent PACs on the monitor here in the emergency department. On my 2nd evaluation he stated that he was having some neck discomfort but this was a pinpoint discomfort in the back of his neck that I suspect is musculoskeletal. Has no chest discomfort. Low suspicion for ACS. He is currently wearing a surveillance monitor prescribed by his executive chairman. No further workup needed here in the emergency department. Did inform him that he potentially is having episodes of atrial fibrillation however the cardiac monitoring he is wearing will help differentiate this. He will contact his executive chairman for follow-up. He is given strict return precautions. He expressed understanding and agreement. Discharge Plan Departure Patient Disposition: Home Clinical Impression: Hypertension, Palpitations Instructions: Arrhythmias Activity Restrictions/Additional Instructions: I recommend you continue to take all of your medications as directed. Keep all of your scheduled medical appointments. Return to the emergency department for any new or worsening symptoms Prescriptions: No Action [ibuprofen ] 200 mg PO BID PRN (Reason: Pain (Scale Score 4-6)) Qty: 0 RF: 0 FOLIC ACID/VIT A/VIT B1/VIT (#MULTIVITAMIN) 1 tab PO BID Qty: 0 RF: 0 alendronate [Fosamax] 70 MG tablet 70 mg PO QWEEK Qty: 0 RF: 0 calcium citrate 250 MG tablet 600 mg BID Qty: 0 RF: 0 loperamide [Imodium A-D] 1 MG/7.5 ML liquid 1 mg PO PRN PRN (Reason: Diarrhea) Qty: 0 RF: 0 pantoprazole 40 mg tablet,delayed release (DR/EC) 40 mg PO DAILY RF: 0 finasteride 5 mg tablet 5 mg PO DAILY RF: 0 metoprolol tartrate 25 mg tablet 12.5 mg PO BID Qty: 30 RF: 0 metronidazole 0.75 % Cream 1 applic TOPICAL BID RF: 0 cholecalciferol (vitamin D3) [Vitamin D3] 2,000 unit Capsule 2,000 unit PO DAILY RF: 0 Eliquis 5 mg Tablet 5 mg PO BID RF: 0 Referrals: Jamin Pizarro MD [Primary Care Provider] -
[2021-05-17 13:50] LABS: BUN Creatinine Ratio 17.2 (6-22); Blood Urea Nitrogen 16 mg/dL (9-20); Calcium 9.3 mg/dL (8.4-10.2); Carbon Dioxide 24 mmol/L (22-32); Chloride 109 mmol/L (98-107); Creatine Kinase 193 U/L (55-170); Estimated Glomerular Filt Rate > 60.0 mL/min (>60); Glucose 91 mg/dL (80-110); HEMOLYSIS < 15 (0-50); Potassium 5.1 mmol/L (3.4-5.1); Sodium 136 mmol/L (137-145)
[2021-05-17 14:02] LABS: Troponin I 0.022 ng/mL (0.01-0.034)
[2021-05-17 14:05] LABS: CKMB % Relative Index 4.3 % (1.5-5.0); Creatine Kinase MB 8.36 ng/mL (<2.37)
== END 2021-05-17 14:49 | disposition home or self-care (01) ==
PROVIDERS: Emergency Provider Emergency Medicine; PCP Internal Medicine
DX: I10 Essential (primary) hypertension (principal); R00.2 Palpitations; M54.5 Low back pain; R06.02 Shortness of breath
CPT/HCPCS: 36415; 71045; 80048; 82550; 82553; 84484; 85025; 93005; 93010; 99284

== ENCOUNTER → 2021-08-12 09:22 | Outpatient (CLI) | payer MEDICARE, SELFPAY ==
[2021-08-12 12:43] LABS: Clostridium Difficile Tox PCR Negative for C. diff (Negative)
== END ==
PROVIDERS: PCP Internal Medicine; Referring Provider Specialist; Visit Provider Specialist
DX: R63.4 Abnormal weight loss (principal); C25.9 Malignant neoplasm of pancreas, unspecified; K52.9 Noninfective gastroenteritis and colitis, unspecified
CPT/HCPCS: 87493

== ENCOUNTER 2021-09-15 06:55 | Emergency (ER) | payer MEDICARE, SELFPAY ==
[2021-09-15 07:15] VITALS: BP 178/77; PULSE 83; RESP 16; TEMP 37.4; O2SAT 100; BMI 20.6
--- NOTE | 2021-09-15 07:38 | ED_ITS ---
HPI - Abdominal Pain General Chief Complaint: Abdominal Pain Stated Complaint: stomach pain x1 day Time Seen by Provider: 09/15/21 07:14 History of Present Illness HPI narrative: 76M nonsmoker with history of pancreatic cancer, post Whipple procedure 12 years ago and managed locally by Dr. Baldwin, presents with severe abdominal pain nausea and poor appetite for the past 24 hours or so. He has had no fever chills. He denies any obvious provocation, palliation or radiation. He has had increasing difficulty with bowel movements for quite some time. He denies any urinary complaints such as dysuria, frequency or urgency. He has an appointment this morning to discuss the results of a recent PET scan with his oncologist. Related Data Home Medications Medication Instructions Recorded Confirmed FOLIC ACID/VIT A/VIT B1/VIT 1 tab PO BID #0 06/04/12 09/01/21 (#MULTIVITAMIN) [ibuprofen ] 200 mg PO BID PRN #0 06/04/12 09/01/21 alendronate 70 mg tablet (Fosamax) 70 mg PO QWEEK #0 03/06/17 09/01/21 calcium citrate 600 mg BID #0 03/06/17 09/01/21 finasteride 5 mg tablet 5 mg PO DAILY 12/09/18 09/01/21 pantoprazole 40 mg tablet,delayed 40 mg PO DAILY 12/09/18 09/01/21 release apixaban 5 mg tablet (Eliquis) 5 mg PO BID 03/24/19 09/01/21 cholecalciferol (vitamin D3) 50 2,000 unit PO DAILY 03/24/19 09/01/21 mcg (2,000 unit) capsule (Vitamin D3) metronidazole 0.75 % topical cream 1 applic TOPICAL BID PRN 05/17/21 09/01/21 Previous Rx's Medication Instructions Recorded metoprolol tartrate 25 mg tablet 12.5 mg PO BID #30 tab 12/09/18 hydrocodone 5 mg-acetaminophen 325 1 tab PO Q4-6H PRN #20 tab 09/15/21 mg tablet ondansetron 4 mg disintegrating 4 mg PO TID-QID PRN #20 tab 09/15/21 tablet Allergies Allergy/AdvReac Type Severity Reaction Status Date / Time No Known Drug Allergies Allergy Verified 05/17/21 12:30 Review of Systems Review of Systems Narrative: GENERAL: Denies chills, fatigue, malaise, fever, sweats. HEENT: Denies sinus pain, ear pain, sore throat, difficulty swallowing, dizziness. RESPIRATORY: Denies dyspnea, cough, wheezing, hemoptysis, sputum. CARDIOVASCULAR: Denies chest pain, palpitations, orthopnea, edema, GASTROINTESTINAL: See HP : Denies dysuria, frequency, incontinence, hematuria, urinary retention. MUSCULOSKELETAL: denies weakness, joint pain, or bony pain SKIN: Denies rash, skin lesions, or other NEUROLOGIC: Denies weakness, headache, numbness, change in speech, confusion, seizures, incoordination. PSYCHIATRIC: No concerning psychosocial issues. 12 point review of systems is negative except for those stated above Patient History Medical History Afib BPH (benign prostatic hyperplasia) Pancreatic cancer Surgical History H/O hemicolectomy H/O Whipple procedure History of appendectomy History of bilateral knee replacement Family History Brother Bladder cancer Lung cancer Brother Bladder cancer Father Cancer Social History household members: spouse Smoking Status: Never smoker alcohol intake: current (2-3 beers in the evening. ) substance use type: does not use Smoking Status: Never smoker alcohol intake frequency: 3 or more drinks per day Substance Use Type: does not use Exam Narrative Exam Narrative: GENERAL: [76 year old patient appears stated age. Well-developed patient, in mil d distress. Obviously uncomfortable HEAD: Atraumatic. Normocephalic. EYES: Pupils equal round and reactive. Extraocular motions intact. No scleral icterus. No injection or drainage. ENT: Nose without bleeding, purulent drainage. Throat without erythema, tonsillar hypertrophy or exudate. Airway patent. NECK: Trachea midline. Non tender CARDIOVASCULAR: Regular rate and rhythm without murmurs, gallops, or rubs. RESPIRATORY: Clear to auscultation. Breath sounds equal bilaterally. No wheezes, rales, or rhonchi. GASTROINTESTINAL: Abdomen soft, tender in the lower abdomen, nondistended. EXTREMITIES: No edema or joint tenderness. BACK: Nontender without deformity or crepitance. No flank tenderness. NEURO: AOx3. SKIN: No rash or erythema of visible areas Initial Vital Signs Initial Vital Signs: Vital Signs Temperature 99.3 F 09/15/21 07:15 Pulse Rate 83 09/15/21 07:15 Respiratory Rate 16 09/15/21 07:15 Blood Pressure 178/77 H 09/15/21 07:15 Pulse Oximetry 100 09/15/21 07:15 Course Orders Ordered: ED Orders 09/15/21 07:30 Complete Blood Count AUTO DIFF Stat Comprehensive Metabolic Panel Stat Lactate (Lactic Acid) Stat Lipase Stat Magnesium Stat 09/15/21 07:59 XR acute abdomen series Stat 09/15/21 08:15 Blood Culture Stat Discontinued Medications Morphine Sulfate (Morphine 4 Mg/Ml Inj) 4 mg IV NOW ONE Stop: 09/15/21 07:57 Last Admin: 09/15/21 08:05 Dose: 4 mg Documented by: KENNA Ondansetron HCl (Ondansetron 4 Mg/2 Ml Inj) 4 mg IV NOW ONE Stop: 09/15/21 07:57 Last Admin: 09/15/21 08:05 Dose: 4 mg Documented by: KENNA Vital Signs Vital signs: Vital Signs - 8 hr 09/15/21 07:15 Temperature 99.3 F Pulse Rate 83 Respiratory Rate 16 Blood Pressure 178/77 H Pulse Oximetry 100 MDM - Abdominal Pain Lab Data Result diagrams: 09/15/21 07:30 09/15/21 07:30 Labs: Lab Results 09/15/21 09/15/21 09/15/21 Range/Units 07:30 07:30 07:30 WBC 9.5 (4.5-11.0) X10^3/uL RBC 3.18 L (4.5-5.9) X10^6/uL Hgb 9.0 L (13.5-17.5) g/dL Hct 27.3 L (41-53) % MCV 85.9 (80-100) fL MCH 28.5 (26-34) PG MCHC 33.1 (30-36) % RDW 17.8 H (11.6-14.8) % Plt Count 178 (150-400) X10^3/uL Neut % (Auto) 92.1 H (50-75) % Lymph % (Auto) 2.8 L (25-40) % [place] % (Auto) 3.8 (3-14) % Eos % (Auto) 0.9 L (2-4) % Baso % (Auto) 0.4 (0-2) % Neut # (Auto) 8700 H (8237-7448) /uL Lymph # (Auto) 300 L (1323-4026) /uL [place] # (Auto) 400 (0-900) /uL Eos # (Auto) 100 (0-450) /uL Baso # (Auto) 0 (0-100) /uL Sodium 139 (137-145) mmol/L Potassium 4.2 (3.4-5.1) mmol/L Chloride 112 H (98-107) mmol/L Carbon Dioxide 20 L (22-32) mmol/L BUN 20 (9-20) mg/dL Creatinine 1.17 (0.66-1.25) mg/dL Estimated GFR > 60.0 (>60) mL/min BUN/Creatinine Ratio 17.1 (6-22) Glucose 100 (80-110) mg/dL Lactate 2.0 (0.7-2.1) mmol/L Calcium 9.2 (8.4-10.2) mg/dL Magnesium (1.6-2.3) mg/dL Total Bilirubin 1.2 (0.2-1.3) mg/dL AST 88 H (17-59) IU/L ALT 74 H (<50) IU/L Alkaline Phosphatase 517 H (38-126) U/L Total Protein 7.7 (6.3-8.2) g/dL Albumin 3.7 (3.5-5.0) g/dL Globulin 4.0 (1.7-4.1) g/dL Albumin/Globulin Ratio 0.9 L (1.0-2.8) Lipase 28 (23-300) U/L 09/15/21 Range/Units 07:30 WBC (4.5-11.0) X10^3/uL RBC (4.5-5.9) X10^6/uL Hgb (13.5-17.5) g/dL Hct (41-53) % MCV (80-100) fL MCH (26-34) PG MCHC (30-36) % RDW (11.6-14.8) % Plt Count (150-400) X10^3/uL Neut % (Auto) (50-75) % Lymph % (Auto) (25-40) % [place] % (Auto) (3-14) % Eos % (Auto) (2-4) % Baso % (Auto) (0-2) % Neut # (Auto) (3033-6260) /uL Lymph # (Auto) (2285-3822) /uL [place] # (Auto) (0-900) /uL Eos # (Auto) (0-450) /uL Baso # (Auto) (0-100) /uL Sodium (137-145) mmol/L Potassium (3.4-5.1) mmol/L Chloride (98-107) mmol/L Carbon Dioxide (22-32) mmol/L BUN (9-20) mg/dL Creatinine (0.66-1.25) mg/dL Estimated GFR (>60) mL/min BUN/Creatinine Ratio (6-22) Glucose (80-110) mg/dL Lactate (0.7-2.1) mmol/L Calcium (8.4-10.2) mg/dL Magnesium 1.9 (1.6-2.3) mg/dL Total Bilirubin (0.2-1.3) mg/dL AST (17-59) IU/L ALT (<50) IU/L Alkaline Phosphatase (38-126) U/L Total Protein (6.3-8.2) g/dL Albumin (3.5-5.0) g/dL Globulin (1.7-4.1) g/dL Albumin/Globulin Ratio (1.0-2.8) Lipase (23-300) U/L Imaging Data Abdominal x-ray: Radiologist's Impression: [address] [address] XRay Report Signed Patient: Arik Younger MR#: [id number] : 1945 Acct:[id number] Age/Sex: 76 / M Date of Service: 09/15/21 Loc: ED Accession Number: [id number] ?? Procedure: XR acute abdomen series Ordering Provider: Andres Lino D.O. PROCEDURE:? XR ACUTE ABDOMEN SERIES ? INDICATIONS:? abdominal pain ? TECHNIQUE:? One view chest and two views of the abdomen were acquired.? ? COMPARISON:? [facility], CT, CT ABDOMEN PANCREATIC PROTOCOL, 08/11/2021, 13:24. ? FINDINGS:? ? Surgical changes and devices:? None.? ? Chest:? Lungs are clear.? Heart size is normal.? No pleural effusions.? No pneumoperitoneum.? ? Abdomen:? Bowel gas pattern is normal.? No suspicious calcifications.? Visualized solid organ contours appear normal.? Bilateral renal stones and a right renal pelvic stone are again noted. ? Bones:? No suspicious bony lesions.? ? IMPRESSION:? Bilateral renal stones including a right renal pelvic stone.? No evidence acute abdominal process or acute pulmonary process. ? Dictated by: Alexander Clayton M.D. on 09/15/2021 at 8:33 ? ? MDM Narrative Medical decision making narrative: Patient with history of pancreatic cancer and prior Whipple procedure has had increasing pain and a recent PET scan shows a recurrence of cancer. His pain is well controlled today and he is tolerating orals. There is no evidence of obstruction. I have discussed with patient's oncologist and they will see him in the office as soon as possible to discuss a plan moving forward. Patient is given return precautions and has had questions answered to his apparent satis faction Discharge Plan Departure Patient Disposition: Home Clinical Impression: Acute abdominal pain Instructions: DI for Abdominal Pain-Adult Activity Restrictions/Additional Instructions: *You have been diagnosed with [acute on chronic abdominal pain. As we discussed, based on the findings of your PET scan unfortunately it seems that there is evidence of recurrence of metastatic disease. Dr. Baldwin's office will reach out to you to reschedule today's appointment to discuss a plan moving fo rward *What to do: *Please continue to take your regular medications as directed. [x ] New medication prescriptions sent to your pharmacy: [[facility] ] [ ] New medication written as a paper prescription [ ] No new medications given *Please follow up with your primary medical oncologist, they will reach out to you today to schedule *Return to Emergency Department if you should have any new, worsening or concerning symptoms, such as [fever greater than 101 F, shaking chills, worsening pain, persistent vomiting or other bothersome symptoms] You have been prescribed a short course of narcotic medications. These are potentially dangerous and addictive medications that should be used carefully. While on these medications you cannot drive or operate heavy machinery. Additionally, you cannot sign legal documents or perform any duties such as this. Many people get constipated on narcotic medications so it would be advisable to discuss stool softeners with the pharmacist when you bulk picker your prescription. Please understand that we cannot provide further refills of narcotics or controlled substances through the ED and your pain management will need to be through your Primary Care Provider Prescriptions: New hydrocodone-acetaminophen 5-325 mg tablet 1 tab PO Q4-6H PRN (Reason: pain) Qty: 20 0RF ondansetron 4 mg tablet,disintegrating 4 mg PO TID-QID PRN (Reason: nausea and vomiting) Qty: 20 0RF No Action [ibuprofen ] 200 mg PO BID PRN (Reason: Pain (Scale Score 4-6)) Qty: 0 0RF FOLIC ACID/VIT A/VIT B1/VIT (#MULTIVITAMIN) 1 tab PO BID Qty: 0 0RF alendronate [Fosamax] 70 MG tablet 70 mg PO QWEEK Qty: 0 0RF calcium citrate 250 MG tablet 600 mg BID Qty: 0 0RF pantoprazole 40 mg tablet,delayed release (DR/EC) 40 mg PO DAILY 0RF finasteride 5 mg tablet 5 mg PO DAILY 0RF metoprolol tartrate 25 mg tablet 12.5 mg PO BID Qty: 30 0RF metronidazole 0.75 % Cream 1 applic TOPICAL BID PRN (Reason: Rash) 0RF cholecalciferol (vitamin D3) [Vitamin D3] 2,000 unit Capsule 2,000 unit PO DAILY 0RF Eliquis 5 mg Tablet 5 mg PO BID 0RF Referrals: Ulisses Paredes MD [Primary Care Provider] - Shane Baldwin MD [Physician] -
[2021-09-15 07:49] LABS: Add Manual Diff / Slide Review NO; Basophils Absolute Auto 0 /uL (0-100); Basophils Percent Auto 0.4 % (0-2); Eosinophils Absolute Auto 100 /uL (0-450); Eosinophils Percent Auto 0.9 % (2-4); Hematocrit 27.3 % (41-53); Lymphocytes Absolute Auto 300 /uL (1100-4500); Lymphocytes Percent Auto 2.8 % (25-40); Mean Corpuscular HGB Conc 33.1 % (30-36); Mean Corpuscular Hemoglobin 28.5 PG (26-34); Mean Corpuscular Volume 85.9 fL (80-100); Monocytes Absolute Auto 400 /uL (0-900); Monocytes Percent Auto 3.8 % (3-14); Neutrophils Absolute Auto 8700 /uL (1500-7000); Neutrophils Percent Auto 92.1 % (50-75); Platelet Count 178 X10^3/uL (150-400); Red Blood Cell Count 3.18 X10^6/uL (4.5-5.9); Red Cell Distribution Width 17.8 % (11.6-14.8); White Blood Cell Count 9.5 X10^3/uL (4.5-11.0)
[2021-09-15 07:54] LABS: Alanine Aminotransferase 74 IU/L (<50); Albumin 3.7 g/dL (3.5-5.0); Albumin Globulin Ratio 0.9 (1.0-2.8); Alkaline Phosphatase 517 U/L (38-126); Aspartate Aminotransferase 88 IU/L (17-59); BUN Creatinine Ratio 17.1 (6-22); Bilirubin Total 1.2 mg/dL (0.2-1.3); Blood Urea Nitrogen 20 mg/dL (9-20); Calcium 9.2 mg/dL (8.4-10.2); Carbon Dioxide 20 mmol/L (22-32); Chloride 112 mmol/L (98-107); Estimated Glomerular Filt Rate > 60.0 mL/min (>60); Glucose 100 mg/dL (80-110); HEMOLYSIS < 15 (0-50); Lipase 28 U/L (23-300); Potassium 4.2 mmol/L (3.4-5.1); Sodium 139 mmol/L (137-145); Total Protein 7.7 g/dL (6.3-8.2)
[2021-09-15 07:55] LABS: Magnesium 1.9 mg/dL (1.6-2.3)
--- NOTE | 2021-09-15 07:59 | DI.RAD.S_ITS ---
PROCEDURE: XR ACUTE ABDOMEN SERIES INDICATIONS: abdominal pain TECHNIQUE: One view chest and two views of the abdomen were acquired. COMPARISON: [facility], CT, CT ABDOMEN PANCREATIC PROTOCOL, 08/11/2021, 13:24. FINDINGS: Surgical changes and devices: None. Chest: Lungs are clear. Heart size is normal. No pleural effusions. No pneumoperitoneum. Abdomen: Bowel gas pattern is normal. No suspicious calcifications. Visualized solid organ contours appear normal. Bilateral renal stones and a right renal pelvic stone are again noted. Bones: No suspicious bony lesions. IMPRESSION: Bilateral renal stones including a right renal pelvic stone. No evidence acute abdominal process or acute pulmonary process. Dictated by: Alexander Clayton M.D. on 09/15/2021 at 8:33 Approved by: Alexander Clayton M.D. on 09/15/2021 at 8:36
[2021-09-15] MEDS: ONDANSETRON 4 MG/2 ML INJ IV (08:05)
[2021-09-15] MEDS: MORPHINE 4 MG/ML INJ IV (08:05)
[2021-09-15 09:34] VITALS: BP 123/62; PULSE 79; RESP 16; TEMP 36.7; O2SAT 99
== END 2021-09-15 09:37 | disposition home or self-care (01) ==
PROVIDERS: Emergency Provider Emergency Medicine; PCP Internal Medicine
DX: R10.30 Lower abdominal pain, unspecified (principal); Z85.89 Personal history of malignant neoplasm of other organs and systems; C25.9 Malignant neoplasm of pancreas, unspecified; D64.9 Anemia, unspecified
CPT/HCPCS: 36415; 36591; 74022; 80053; 83605; 83690; 83735; 85025; 87040; 96374; 96375; 99215; 99284; J2270; J2405

== ENCOUNTER → 2021-09-16 13:36 | Outpatient (CLI) | payer MEDICARE, SELFPAY ==
[2021-09-16 14:00] LABS: COVID19 -Nasal RAPID Negative (Negative)
== END ==
PROVIDERS: PCP Internal Medicine; Visit Provider Surgery
DX: Z01.812 Encounter for preprocedural laboratory examination (principal); Z20.822 Contact with and (suspected) exposure to COVID-19
CPT/HCPCS: 87635; C9803

== ENCOUNTER 2021-09-19 08:01 | Day surgery (SDC) | payer MEDICARE, SELFPAY ==
[2021-09-19] VITALS (7 sets, daily range): BP systolic 98–149; BP diastolic 49–75; PULSE 63–75; RESP 10–16; TEMP 36.6–37; O2SAT 99–100; BMI 20.5
[2021-09-19] MEDS: LACTATED RINGERS 1,000 ML 42 ML IV (08:41)
--- NOTE | 2021-09-19 09:13 | PM.HP.1 ---
History of Present Illness History of Present Illness Date Patient Seen: 09/19/21 Time Patient Seen: 09:13 Chief complaint: PORT-A-CATH PLACEMENT Narrative: Arik is a 68-year-old man who has recurrent pancreatic cancer. He had a Whipple several years ago followed by chemotherapy. He had a port few years ago but he is unsure which side. He is here for a another port for palliative chemotherapy. Patient History Medical History Afib BPH (benign prostatic hyperplasia) Pancreatic cancer Surgical History H/O hemicolectomy H/O Whipple procedure History of appendectomy History of bilateral knee replacement Family & Social History Family History Brother Bladder cancer Lung cancer Brother Bladder cancer Father Cancer Social History: household members spouse Tobacco & Substance use: Smoking Status Never smoker alcohol intake never alcohol intake frequency 3 or more drinks per day Substance Use Type does not use Meds Home Medications and Allergies Home Medications Medication Instructions Recorded Confirmed Type FOLIC ACID/VIT A/VIT B1/VIT 1 tab PO BID #0 06/04/12 09/19/21 History (#MULTIVITAMIN) [ibuprofen ] 200 mg PO BID PRN #0 06/04/12 09/19/21 History alendronate 70 mg tablet (Fosamax) 70 mg PO QWEEK #0 03/06/17 09/19/21 History calcium citrate 600 mg BID #0 03/06/17 09/19/21 History finasteride 5 mg tablet 5 mg PO DAILY 12/09/18 09/19/21 History metoprolol tartrate 25 mg tablet 12.5 mg PO BID #30 tab 12/09/18 09/19/21 Rx pantoprazole 40 mg tablet,delayed 40 mg PO DAILY 12/09/18 09/19/21 History release apixaban 5 mg tablet (Eliquis) 5 mg PO BID 03/24/19 09/19/21 History cholecalciferol (vitamin D3) 50 2,000 unit PO DAILY 03/24/19 09/19/21 History mcg (2,000 unit) capsule (Vitamin D3) metronidazole 0.75 % topical cream 1 applic TOPICAL BID PRN 05/17/21 09/19/21 History hydrocodone 5 mg-acetaminophen 325 1 tab PO Q4-6H PRN #20 tab 09/15/21 09/19/21 Rx mg tablet ondansetron 4 mg disintegrating 4 mg PO TID-QID PRN #20 tab 09/15/21 09/19/21 Rx tablet Allergies Allergy/AdvReac Type Severity Reaction Status Date / Time No Known Drug Allergies Allergy Verified 09/16/21 14:24 Exam Vital Signs (past 8 hours): - 09/19/21 08:30 Temperature 98.5 F Pulse Rate 63 Respiratory Rate 16 Blood Pressure 149/75 H Pulse Oximetry 100 Oxygen Delivery Method Room Air Narrative Exam Narrative: There appears to be an old scar from a prior port in the left upper chest. Right upper chest and right neck are normal in appearance without deformity or old surgical scars. Const General: healthy appearing Assessment & Plan Assessment and plan (1) Recurrent adenocarcinoma of pancreas: Status: Acute Plan Will plan for a right internal jugular vein approach for a Port-A-Cath. We reviewed the risks and benefits and he would like to proceed. He can restart his Eliquis tomorrow. COVID-19 COVID-19 status: Negative Result date/Date tested (Pos, Neg/Pending): 09/16/21 Time Spent With Patient Critical Care time: I spent a total of [] minutes of critical care time on this patient's care today; this time is exclusive of procedural time.
[2021-09-19] MEDS: CEFAZOLIN 2 GM/20 ML SYRINGE IV (09:32)
--- NOTE | 2021-09-19 09:45 | SUR.OPER ---
Supine on padded OR bed, head on gel donut, arms padded and tucked at sides, legs uncrossed, safety belt at thigh, tape over blanket over lower legs . Gel pad placed under bilateral heels.
[2021-09-19] MEDS: HEPARIN 5,000 UNIT, SODIUM CHLORIDE 0.9% 50 ML IV (09:57)
--- NOTE | 2021-09-19 10:00 | DI.RAD.S_ITS ---
PROCEDURE: XR CHEST 1V INDICATIONS: RIGHT PORT-A-CATH PLACEMENT TECHNIQUE: One view of the chest was acquired. COMPARISON: [facility], , XR CHEST 1V, 05/17/2021, 13:11. FINDINGS: Surgical changes and devices: Right chest Port-A-Cath. Lungs and pleura: Lungs are clear. No pleural effusions or pneumothorax. Mediastinum: Mediastinal contours appear normal. Heart size is normal. 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 No suspicious bony lesions. Overlying soft tissues appear unremarkable. IMPRESSION: Expected appearance of Port-A-Cath. No evidence acute pulmonary process. Dictated by: Alexander Clayton M.D. on 09/19/2021 at 12:57 Approved by: Alexander Clayton M.D. on 09/19/2021 at 12:58
[2021-09-19] MEDS: BUPIVACAINE 0.5% (PF) VIAL 30 ML INJ (10:01)
[2021-09-19] MEDS: LIDOCAINE 1% W/EPI 20 ML INJ (10:01)
--- NOTE | 2021-09-19 10:17 | PM.OP.1 ---
Operative Date/Time/Diagnoses Date of procedure: 09/19/21 Time of procedure: 10:17 Pre-op diagnosis: Recurrent pancreatic cancer Procedure & Clinicians Procedure: Port-A-Cath Same procedure as scheduled: Yes Indications: Recurrent pancreatic cancer Surgeon: Zen Castellon Click Yes if Unassisted: Yes Anesthesia Type: General Operative Notes Procedure in detail: The patient was brought to the operating room, placed on the table in the supine position with the arms tucked. Ancef was administered. Anesthesia was induced via LMA. A time-out was performed. The right chest and neck were prepped and draped in the usual fashion. An ultrasound was used to identify the right internal jugular vein. The vein was noted to be patent. An image was saved and printed and placed in the chart. The right internal jugular vein was accessed via the Seldinger technique under ultrasound guidance. The guidewire was inserted into the superior vena cava. C-arm was used to confirm proper position of the guidewire in the superior vena cava and no ectopy was noted. The needle was removed and the wire was clamped to the drape. Next, a port pocket was created just inferior to the medial clavicle using a 15 blade scalpel. Dissection was carried down to the pectoral fascia. A subcutaneous pocket was created using a combination of cautery and blunt dissection. Next, the port which was primed with injectable saline, was secured to the fascia with 3-0 PDS sutures left untied and clamped. The neck incision was extended with an 11 blade scalpel to approximately 5 mm. The dilator and peel-away sheath were inserted over the wire without resistance. The catheter was passed from the neck incision to the chest incision in the subcutaneous tissue using the tunnelling device. The wire and dilator were then removed and the catheter inserted through the peel-away sheath to deliver it into the superior vena cava. The depth of the device was checked using the C-arm and the tip of the device was noted to be in the distal superior vena cava. The exterior portion of the catheter was then trimmed and attached to the port using the strain relief collar. A final image showed good position of the catheter with no kinks. The port was then tucked into the subcutaneous pocket and the sutures were tied to secure the device. The port was then accessed using the Curtis needle and it was noted that the device tiffany and flushed easily without resistance. Approximately 4 mL of heparinized saline were injected into the device. The skin incisions were closed with 3-0 Vicryl and 4-0 Monocryl. Steri-Strips were applied patient was awakened and brought to recovery room EBL: 5 mL Ultrasound: The right internal jugular vein was patent. The right carotid artery was visualized adjacent to the vein. Venipuncture was visualized in real-time using the ultrasound. Fluoroscopy: The device was positioned appropriately with the distal end of the catheter near the atriocaval junction. There were no kinks in the catheter. Post-operative Condition: stable Disposition: PACU
== END 2021-09-19 11:28 | disposition home or self-care (01) ==
PROVIDERS: PCP Internal Medicine; Referring Provider Internal Medicine Hematology & Oncology; Visit Provider Surgery
PROC: (CPT 36561; principal; 2021-09-19 09:15)
DX: C25.9 Malignant neoplasm of pancreas, unspecified (principal); I48.91 Unspecified atrial fibrillation; N40.0 Benign prostatic hyperplasia without lower urinary tract symptoms
CPT/HCPCS: 36561; 71045; 76000; C1788; J0690; J1644; J2405; J2704; J3010

== ENCOUNTER → 2021-10-29 19:46 | Outpatient (ROUT) | payer OTHER, SELFPAY ==
[2021-10-29 19:57] LABS: Hemoglobin 7.1 g/dL (13.5-17.5); Mean Corpuscular HGB Conc 32.1 % (30-36); Mean Corpuscular Hemoglobin 27.2 PG (26-34); Mean Corpuscular Volume 84.6 fL (80-100); Platelet Count 155 X10^3/uL (150-400); Red Cell Distribution Width 18.3 % (11.6-14.8)
[2021-10-29 20:20] LABS: Add Manual Diff / Slide Review YES; White Blood Cell Count 32.6 X10^3/uL (4.5-11.0)
[2021-10-29 20:57] LABS: Neutrophils Absolute Manual 29666 /uL (3000-5900); Nucleated Red Blood Cells 4 #/Diff; Total Cells Counted 100
[2021-10-29 20:58] LABS: Anisocytosis 2+; Burr Cells 1+; Hypochromasia 2+
[2021-10-29 20:59] LABS: Target Cells 1+
== END ==
PROVIDERS: PCP Internal Medicine; Visit Provider Internal Medicine
DX: Z13.9 Encounter for screening, unspecified (principal)
CPT/HCPCS: 85007; 85025